=== PATIENT | female | born 1940 | race African-American/Black ===

== ENCOUNTER 2022-10-03 13:59 | Inpatient (IN) | payer MEDICARE, OTHER ==
[~2022-10-03] VITALS: Ht 162.6 cm; Wt 64.0 kg
[~2022-10-03 13:59] MED LIST: APIX2.5T PO; CARV6.252 PO; DONE10TA44 PO; FERR325T23 PO; LEVO25TA7 PO; PANT40TA49 PO; SERT25TA PO
--- NOTE | 2022-10-03 14:10 | NUR ---
[facility], SYNCOPAL EPISODE, NO HEAD INJURY, ON ELIQUIS. PLACED IN BED, AAOX4, BREATHING EVEN AND UNLABORED SATURATING AT 97%RA. WILL CONTINUE TO MONITOR.
--- NOTE | 2022-10-03 14:20 | NUR ---
BLOOD DRAWN AND SENT TO LAB
--- NOTE | 2022-10-03 14:23 | NUR ---
MOVE SHEET SUBMITTED.
[2022-10-03 14:37] LABS: EOSINOPHILS % (AUTO) 2.9 % (0.0-6.0); HEMATOCRIT 28 % (33-45); LYMPHOCYTES # (AUTO) 1.7 K/uL (0.8-4.8); LYMPHOCYTES % (AUTO) 49.2 % (20.0-44.0); MEAN CORPUSCULAR HGB CONC 32 g/dl (31.0-36.0); MEAN CORPUSCULAR VOLUME 88 fL (82-100); MONOCYTES # (AUTO) 0.4 K/uL (0.1-1.30); MONOCYTES % (AUTO) 10.2 % (2.0-12.0); NEUTROPHILS # (AUTO) 1.3 K/uL (1.8-8.9); NEUTROPHILS % (AUTO) 36.7 % (43.0-81.0); PLATELET COUNT (AUTO) 286 K/uL (150-450); RED BLOOD CELL COUNT(AUTO) 3.19 MIL/uL (4.0-5.2); WHITE BLOOD COUNT (AUTO) 3.5 K/uL (4.3-11.0)
--- NOTE | 2022-10-03 14:53 | NUR ---
SWAB FOR COVID19 SENT TO LAB
[2022-10-03] MEDS ORDERED: PANT40TA49 PO (15:26)
[2022-10-03] MEDS ORDERED: APIX2.5T PO (15:26)
--- NOTE | 2022-10-03 15:40 | NUR ---
URINE SAMPLE COLLECTED AND SENT TO LAB
[2022-10-03 15:45] LABS: CALCIUM, SERUM 9.3 mg/dL (8.5-10.1); CARBON DIOXIDE 30 mmol/L (21-32); CHLORIDE 102 mmol/L (98-107); CREATININE 0.8 mg/dL (0.6-1.3); GLUCOSE 118 mg/dL (74-106); POTASSIUM 4.1 mmol/L (3.5-5.1); SODIUM SERUM 137 mmol/L (136-145); UREA NITROGEN, BLOOD 16 mg/dL (7-18)
[2022-10-03] MEDS ORDERED: IOHEXOL-350 100 ML VIAL IV ONE (15:51)
[2022-10-03] MEDS ORDERED: IV NS 0.9% 250 ML IV ONE (15:51)
[2022-10-03] MEDS ORDERED: CT SWABBABLE VALVE TRANS SET 1 EA INFUS.SET MC ONE (15:51)
--- NOTE | 2022-10-03 16:02 | NUR ---
PATIENT TAKEN TO CT VIA CEDRIC
[2022-10-03 16:13] LABS: BILIRUBIN,URINE NEGATIVE (NEGATIVE); COLOR,URINE YELLOW (YELLOW); LEUKOCYTE ESTERASE ,URINE TRACE (NEGATIVE); NITRITE, URINE NEGATIVE (NEGATIVE); PH,URINE 6.5 (5.0-8.0); PROTEIN,URINE NEGATIVE (NEGATIVE); UGLUCOSE NEGATIVE (NEGATIVE); UROBILINOGEN,URINE 0.2 EU/dL (0.2)
[2022-10-03 16:33] LABS: BACTERIA,URINE Many /HPF (None Seen); SQUAMOUS EPITHELIAL CELL,UR Moderate /HPF (None Seen)
[2022-10-03 16:34] LABS: URINE AMORPHOUS URATE Many /HPF (None Seen)
[2022-10-03] MEDS ORDERED: ACETAMINOPHEN 325 MG TABLET PO PRN (17:30)
[2022-10-03] MEDS ORDERED: Z GUARD REMEDY 4 OZ OINT TP PRN (17:30)
[2022-10-03] MEDS ORDERED: MAGNESIUM HYDROXIDE 30 ML UDC PO PRN (17:30)
[2022-10-03] MEDS ORDERED: ONDANSETRON HCL/PF 4 MG/2 ML VIAL IVP PRN (17:30)
[2022-10-03] MEDS ORDERED: MAG HYDROX/AL HYDROX/SIMETH 30 ML UDC PO PRN (17:30)
[2022-10-03] MEDS ORDERED: ACETAMINOPHEN 325 MG TABLET ONE (17:59)
--- NOTE | 2022-10-03 20:28 | NUR ---
REPORT GIVEN TO GEENA RN ROOM 119-1 FOR LUIS ALFREDO
--- NOTE | 2022-10-03 21:00 | NUR ---
BRAZING MACHINE SETTER NOTE RECEIVED PT FROM ER VIA CEDRIC, PT WAS AWAKE, A/O X 4, ABLE TO MAKE NEEDS KNOWN. GRAND DAUGHTER NORMA ON BED SIDE. CURRENTLY ON RA, TOLERATING WELL. O2 SAT @ >95%. NO S/SX OF ACUTE RESPI DISTRESS NOTED AT THIS TIME. NO SOB, BREATHING IS EVEN AND UNLABORED. IV ACCESS IS IN LAC #20g, PATENT, INTACT AND FLUSHES WELL. UPON ASSESSMENT, PT HAS EDEMA ON THE RIGHT LOWER LEG, SACRAL DTI NOTED TOO. PHOTOS TAKEN AND PLACED IN CHART. WOUND CARE CONSULT ORDERED. ALL SAFETY PRECAUTIONS IN PLACE: BED LOCKED IN LOW POSITION, BED ALARM ON. CALL LIGHT WITHIN REACH. WILL CONTINUE TO MONITOR PT.
[2022-10-03] MEDS: IV NS 0.9% 1,000 ML IV PRN (21:28)
[2022-10-04] VITALS: BP 151/78
[2022-10-04 04:00] VITALS: BP 149/74
--- NOTE | 2022-10-04 06:17 | NUR ---
RN NOTE NO SIGNIFICANT CHANGE T/O THE NIGHT. PT REMAINED STABLE. VS WNL. ALL NEEDS MET. TURNED AND REPOSITIONED. WILL ENDORSE TO AM SHIFT NURSE FOR LUIS ALFREDO.
[2022-10-04 07:31] LABS: CARBON DIOXIDE 26 mmol/L (21-32); CHLORIDE 100 mmol/L (98-107); CREATININE 0.8 mg/dL (0.6-1.3); GLUCOSE 101 mg/dL (74-106); MAGNESIUM 2.2 mg/dL (1.8-2.4); PHOSPHORUS 2.8 mg/dL (2.5-4.9); POTASSIUM 3.6 mmol/L (3.5-5.1); SODIUM SERUM 133 mmol/L (136-145); UREA NITROGEN, BLOOD 12 mg/dL (7-18)
--- NOTE | 2022-10-04 07:53 | NUR ---
RN OPENING NOTE PT AWAKE, A/O X 4, ABLE TO MAKE NEEDS KNOWN. CURRENTLY ON RA, TOLERATING WELL. O2 SAT @ >92%. NO S/SX OF ACUTE RESPI DISTRESS NOTED AT THIS TIME. NO SOB, BREATHING IS EVEN AND UNLABORED. IV ACCESS IS IN LAC #20g, PATENT, INTACT AND FLUSHES WELL. PT HAS EDEMA ON THE RIGHT LOWER LEG, SACRAL DTI NOTED TOO. ALL SAFETY PRECAUTIONS IN PLACE: BED LOCKED IN LOW POSITION, SIDE RAILS UP X2. BED ALARM ON. CALL LIGHT WITHIN REACH.
[2022-10-04 08:00] VITALS: BP 148/70
[2022-10-04] MEDS: PANTOPRAZOLE 40 MG TABLET.DR PO SCH (08:11)
[2022-10-04] MEDS: APIXABAN 2.5 MG TABLET PO SCH ×2 (08:13→16:14)
--- NOTE | 2022-10-04 08:30 | NUR ---
rn note notified dr. suárez of orthostatic hypotension sitting bp 161/62 standing bp 148/70 lying 169/64 pt reports not feeling dizzy
[2022-10-04 08:51] LABS: BASOPHILS # (AUTO) 0.1 K/uL (0.0-0.2); BASOPHILS % (AUTO) 1.6 % (0.0-2.0); EOSINOPHILS % (AUTO) 1.4 % (0.0-6.0); HEMATOCRIT 29 % (33-45); LYMPHOCYTES # (AUTO) 1.4 K/uL (0.8-4.8); LYMPHOCYTES % (AUTO) 37.3 % (20.0-44.0); MEAN CORPUSCULAR HGB CONC 31 g/dl (31.0-36.0); MEAN CORPUSCULAR VOLUME 91 fL (82-100); MONOCYTES # (AUTO) 0.5 K/uL (0.1-1.30); MONOCYTES % (AUTO) 14.6 % (2.0-12.0); NEUTROPHILS # (AUTO) 1.6 K/uL (1.8-8.9); NEUTROPHILS % (AUTO) 45.1 % (43.0-81.0); PLATELET COUNT (AUTO) 260 K/uL (150-450); RED BLOOD CELL COUNT(AUTO) 3.19 MIL/uL (4.0-5.2); WHITE BLOOD COUNT (AUTO) 3.6 K/uL (4.3-11.0)
--- NOTE | 2022-10-04 10:22 | NUR ---
WOUND CARE CONSULT: PT PRESENTS WITH SACRAL STAGE 2 ULCER, PRESENT ON ADMISSION. RECOMMENDATIONS MADE FOR SKIN PROTECTION AND WOUND CARE. DISCUSSED WITH NURSING STAFF. IN AGREEMENT WITH PLAN OF CARE. Addendum: 10/04/22 at 1023 by CLAIRE CUNNINGHAM WNDNU Amended: Links added.
[2022-10-04] MEDS ORDERED: HYDROGEL DRESSING 90 GM TUBE TP PRN (10:30)
[2022-10-04 12:00] VITALS: BP 177/66
[2022-10-04] MEDS: CLONIDINE HCL 0.1 MG TABLET PO PRN (12:15)
[2022-10-04] MEDS: HYDROGEL DRESSING 90 GM TUBE TP SCH (13:55)
[2022-10-04] MEDS: MINERAL OIL/PETROLATUM,WHITE 120 GM JAR TP SCH (13:55)
[2022-10-04] MEDS: LEVETIRACETAM (250 MG) 250 MG TABLET PO SCH ×2 (15:14→20:50)
[2022-10-04 16:00] VITALS: BP 125/46
--- NOTE | 2022-10-04 19:23 | NUR ---
RN CLOSING NOTE PT AWAKE, A/O X 4, ABLE TO MAKE NEEDS KNOWN. CURRENTLY ON RA, TOLERATING WELL. O2 SAT @ 100%. NO S/SX OF ACUTE RESPI DISTRESS NOTED AT THIS TIME. NO SOB, BREATHING IS EVEN AND UNLABORED. IV ACCESS IS IN LAC #20g, PATENT, INTACT AND FLUSHES WELL. PT HAS EDEMA ON THE RIGHT LOWER LEG, SACRAL DTI NOTED TOO. ALL SAFETY PRECAUTIONS IN PLACE: BED LOCKED IN LOW POSITION, SIDE RAILS UP X2. BED ALARM ON. CALL LIGHT WITHIN REACH.PT ON SEIZURE PRECAUTIONS. ENDORSED TO BAG MACHINE TENDER RN FOR CONTUITTY OF CARE
--- NOTE | 2022-10-04 19:24 | NUR ---
BOILERMAKER APPRENTICE CLOSING NOTE PATIENT A/O X4. BREATHING EVEN AND NON-LABORED ON ROOM AIR. NOT IN APPARENT DISTRESS. NO C/O PAIN OR DISCOMFORT AT THIS TIME. RIGHT UPPER ARM HD CATH. ALL SAFETY PRECAUTIONS IN PLACE: BED LOCKED AND IN LOW POSITION, SIDE RAILS UP X2, CALL LIGHT WITHIN REACH. BED ALARM ON. PT IS AMBULATORY.PENDING DISCHARGE. PICKUP TIME SCHEDULED FOR 1899 BY AMBULANCE. REMOVED IV AND TELE MONITOR. PT DISCHARGED WITH ALL BELONGINGS. WENT OVER DISCHARGE PAPERWORK. PT VERBALIZED UNDERSTANDING AND AGREED. ENDORESED TO PRINTING PLATE SETTER RN FOR CONTUITY OF CARE AND PENDING DISCHARGE Addendum: 10/04/22 at 1946 by ESEQUIEL FISHER RN CHARTED ON WRONG PATIENT
--- NOTE | 2022-10-04 19:30 | NUR ---
TELE1 RN NOTES RECEIVED LYING ON BED,A/O X4,ABLE TO COMMUNICATE NEEDS,SR 81 ON TELE MONITOR,BREATHING REGULAR,NOT IN ANY FORM OF DISTRESS.PRESENT IVF NS AT 75ML/HR RATE INFUSING ON LEFT AC SALINE LOCK VIA IV PUMP.DENIES CHEST PAIN,ABLE AMBULATE TO THE RESTROOM WITH ASSIST.FALL PRECAUTION OBSERVED,SEIZURE PRECAUTION OBSERVED,SIDE RAILS PADDED FOR SAFETY.BED ON LOWEST POSITION AND LOCKED.BED ALARM TRIGGERED.CALL LIGHT IN REACH,NEEDS ANTICIPATED.
[2022-10-04 20:00] VITALS: BP 139/76
[2022-10-05] VITALS: BP 144/69
[2022-10-05 04:00] VITALS: BP 113/58
--- NOTE | 2022-10-05 06:54 | NUR ---
TELE1 RN CLOSING NOTES SLEEP WELL AT NIGHT,NO CHEST PAIN.AMBULATE WITH WALKER TO THE BATHROOM.REFUSED PHOTOGRAPH ON HER BUTTOCKS THIS MORNING.IN NO ACUTE DISTRESS.
[2022-10-05 07:25] LABS: BASOPHILS % (AUTO) 0.9 % (0.0-2.0); EOSINOPHILS % (AUTO) 1.3 % (0.0-6.0); HEMATOCRIT 26 % (33-45); HEMOGLOBIN 8.6 g/dL (11.5-14.8); LYMPHOCYTES # (AUTO) 1.8 K/uL (0.8-4.8); LYMPHOCYTES % (AUTO) 51.4 % (20.0-44.0); MEAN CORPUSCULAR HGB CONC 33 g/dl (31.0-36.0); MEAN CORPUSCULAR VOLUME 88 fL (82-100); MONOCYTES # (AUTO) 0.7 K/uL (0.1-1.30); MONOCYTES % (AUTO) 20.2 % (2.0-12.0); NEUTROPHILS # (AUTO) 0.9 K/uL (1.8-8.9); NEUTROPHILS % (AUTO) 26.2 % (43.0-81.0); PLATELET COUNT (AUTO) 248 K/uL (150-450); RED BLOOD CELL COUNT(AUTO) 2.99 MIL/uL (4.0-5.2); WHITE BLOOD COUNT (AUTO) 3.4 K/uL (4.3-11.0)
--- NOTE | 2022-10-05 07:29 | NUR ---
RECEIVED NEW ORDER FROM DR. ESCOBEDO, PATIENT TO NPO DUE TO PACEMAKER INSERTION, NOTED AND CARRIED OUT. PLAN OF CARE CONTINUE.
--- NOTE | 2022-10-05 07:30 | NUR ---
RECEIVED A CALL FROM RIKKI, INFORMING THAT PATIENT WILL HAVE PACEMAKER INSERTION, INFORMED THAT PATIENT GOT ELIQUIS AT 1614H, DR. BRANDT SAID IT'S OK AND JUST HOLD THE AM MEDICATION. PLAN OF CARE CONTINUE.
--- NOTE | 2022-10-05 07:30 | NUR ---
TELE OPENING RN NOTES RECEIVED LYING ON BED,A/O X4,ABLE TO COMMUNICATE NEEDS,SR 77 ON TELE MONITOR, ON RA, BREATHING EVEN AND UBLABORED, NOT IN ANY FORM OF DISTRESS. ON IVF NS AT 75ML/HR RATE INFUSING ON LEFT AC, PATENT AND INTACT, FLUSHES WELL. .DENIES CHEST PAIN,ABLE AMBULATE TO THE RESTROOM WITH ASSIST. FALL PRECAUTION OBSERVED,SEIZURE PRECAUTION OBSERVED,SIDE RAILS PADDED FOR SAFETY.BED ON LOWEST POSITION AND LOCKED.BED ALARM TRIGGERED.CALL LIGHT WITHIN REACH. PLAN OF CARE CONTINUE.
[2022-10-05 07:37] LABS: CALCIUM, SERUM 8.9 mg/dL (8.5-10.1); CARBON DIOXIDE 28 mmol/L (21-32); CHLORIDE 101 mmol/L (98-107); CREATININE 0.7 mg/dL (0.6-1.3); GLUCOSE 92 mg/dL (74-106); POTASSIUM 3.7 mmol/L (3.5-5.1); SODIUM SERUM 136 mmol/L (136-145); UREA NITROGEN, BLOOD 12 mg/dL (7-18)
[2022-10-05 08:00] VITALS: BP 142/63
[2022-10-05] MEDS: LEVETIRACETAM (250 MG) 250 MG TABLET PO SCH ×2 (08:08→21:03)
[2022-10-05] MEDS: MINERAL OIL/PETROLATUM,WHITE 120 GM JAR TP SCH (08:08)
[2022-10-05] MEDS: HYDROGEL DRESSING 90 GM TUBE TP SCH (08:08)
[2022-10-05] MEDS: PANTOPRAZOLE 40 MG TABLET.DR PO SCH (08:08)
[2022-10-05] MEDS ORDERED: BUPIVACAINE 0.25% 75 MG/30 ML VIAL ONE (08:56)
[2022-10-05] MEDS ORDERED: IOHEXOL 0 ML IV ONE (08:56)
[2022-10-05] MEDS ORDERED: BUPIVACAINE 0.5 % PF 150 MG/30 ML VIAL ONE (08:57)
[2022-10-05] MEDS ORDERED: LIDOCAINE 1% INJ 50 ML MDV IJ ONE (08:57)
[2022-10-05] MEDS ORDERED: PROSOURCE / PROSTAT (PYXIS) 30 ML UDC GT SCH (09:00)
--- NOTE | 2022-10-05 10:25 | NUR ---
GRANDDAUGHTER CALLED AND STATED HE WANT'S TO TALK TO DR. ESCOBEDO FIRST BEFORE THEY CAN DO THE PROCEDURE, PER GRAND DAUGHTER SHE IS THE POA AND PATIENT IS NOT INFORMED DR. ESCOBEDO AND Addendum: 10/05/22 at 1035 by DIA BISWAS RN ONLY ORIENTED TO SELF, INFORMED DR. ESCOBEDO AND DR. THORNTON,PER DR. THORNTON SURGERY IS CANCEL. PLAN OF CARE CONTINUE.
--- NOTE | 2022-10-05 10:30 | NUR ---
INFORMED THAT GRANDDAUGHTER IS NOT REFUSING ABOUT THE PROCEDURE, BUT SHE WANTED TO TALK TO THE MD ABOUT WHAT'S GOING ON, INFORMED DR. ESCOBEDO, DR. ESCOBEDO DOESN'T WANT TO SPEAK WITH THE GRANDDAUGHTER, INFORMED THE GRANDDAUGHTER AND CHARGE NURSE JERALD. WILL INFORMED DR. ANNA
[2022-10-05 11:32] LABS: BAND % (MANUAL) 2 % (0.0-5.0); EOSINOPHILS % (MANUAL) 1 % (0-4); LYMPHOCYTES % (MANUAL) 58 % (16-48); MONOCYTES % (MANUAL) 9 % (0-11.0); NEUTROPHILS % (MANUAL) 29 (42-76)
[2022-10-05 11:34] LABS: MYELOCYTES % 1 % (0-0)
[2022-10-05 12:00] VITALS: BP 118/51
--- NOTE | 2022-10-05 13:19 | NUR ---
PATIENT'S GRANDDAUGHTER SPOKE TO COMPLIANCE FIELD TECHNICIAN RACHEL AND INFORMED THAT THE GRANDDAUGHTER WANT'S TO BE INVOLVED IN THE DECISION MAKING OF THE PATIENT.
--- NOTE | 2022-10-05 13:26 | NUR ---
DR. ESCOBEDO SPOKE TO THE PATIENT'S GRANDDAUGHTER AT THE BEDSIDE
--- NOTE | 2022-10-05 14:41 | NUR ---
INFORMED DR. STAHL THAT GRANDDAUGHTER ALREADY AGREED WITH THE PACEMAKER INSERTION AFTER TALKING TO DR. ESCOBEDO, PER DR. STAHL THEY WILL DO THE PROCEDURE MARBELLA. NPO AFTER MIDNIGHT ORDER PLACED. PLAN OF CARE CONTINUE.
[2022-10-05] MEDS: PROSOURCE / PROSTAT (PYXIS) 30 ML UDC PO SCH (16:08)
--- NOTE | 2022-10-05 16:27 | NUR ---
DR. MILLS AT THE BEDSIDE, INFORMED MD THAT THE GRAND DAUGHTER WANT'S TO SPEAK WITH HIM, PHONE NUMBER GIVEN TO DR. MILLS.
[2022-10-05 16:28] VITALS: BP 133/60
--- NOTE | 2022-10-05 17:30 | NUR ---
SS consult requested. SW will follow up at a later time.
[2022-10-05] MEDS: IV NS 0.9% 1,000 ML IV PRN (18:06)
--- NOTE | 2022-10-05 18:13 | NUR ---
TELE CLOSING RN NOTES PATIENT IN BED AWAKE, WATCHING TV, A/O X3, ABLE TO COMMUNICATE NEEDS,SR HR 88 ON TELE MONITOR, ON RA, BREATHING EVEN AND UNLABORED, NOT IN ANY FORM OF DISTRESS. ON IVF NS AT 75ML/HR RATE INFUSING ON LEFT AC, PATENT AND INTACT, FLUSHES WELL. .DENIES CHEST PAIN,ABLE AMBULATE TO THE RESTROOM WITH ASSIST. FALL PRECAUTION OBSERVED,SEIZURE PRECAUTION OBSERVED,NO SEIZURE EPISODE. SIDE RAILS PADDED FOR SAFETY. BED ON LOWEST POSITION AND LOCKED. SAFETY PRECAUTION MAINTAINED. CALL LIGHT WITHIN REACH.PATIENT WILL BE NPO AFTER MIDNIGHT,WILL ENDORSE TO NIGHT NURSE FOR LUIS ALFREDO.
--- NOTE | 2022-10-05 19:30 | NUR ---
RN NOTES RECEIVED REPORT FROM MORNING RN. PATIENT IN BED A/O X3 ABLE TO MAKE NEEDS KNOWN. ON ROOM AIR SATING 98% NO SOB NO DISTRESS NOTED AT THIS TIME. WITH IV ACCESS AT L AC PATENT FLUSHES WELL RUNNING NS@75CC/HR NO REDNESS NO INFILTRATION NOTED AT THIS TIME. ALL SAFETY MEASURES IN BED BED ALARM ON. FOR PACEMAKER INSERTION IN THE MORNING. NPO AT MIDNIGHT INSTRUCTED TO PATIENT. WILL CLOSELY MONITOR THE PATIENT
[2022-10-05 20:00] VITALS: BP 105/45
[2022-10-06] VITALS: BP 117/41
[2022-10-06 04:00] VITALS: BP 134/56
--- NOTE | 2022-10-06 07:23 | NUR ---
TELE OPENING RN NOTES RECEIVED LYING ON BED,A/O X4,ABLE TO COMMUNICATE NEEDS,SR 77 ON TELE MONITOR, ON RA, BREATHING EVEN AND UNLABORED, NOT IN ANY FORM OF DISTRESS. ON IVF NS AT 75ML/HR RATE INFUSING ON LEFT AC, PATENT AND INTACT, FLUSHES WELL. .DENIES CHEST PAIN,ABLE AMBULATE TO THE RESTROOM WITH ASSIST. FALL PRECAUTION OBSERVED,SEIZURE PRECAUTION OBSERVED,SIDE RAILS PADDED FOR SAFETY.BED ON LOWEST POSITION AND LOCKED.BED ALARM TRIGGERED.CALL LIGHT WITHIN REACH.
--- NOTE | 2022-10-06 07:26 | NUR ---
RN NOTES PATIENT REMAINS STABLE NO SIGNIFICANT CHANGES. NPO ALEXANDRE INSTRUCTED. PATIENT FOR PACEMAKER INSERTION TODAY. WILL ENDORSED TO MORNING NURSE FOR LUIS ALFREDO
[2022-10-06 08:00] VITALS: BP 143/67
[2022-10-06] MEDS: PROSOURCE / PROSTAT (PYXIS) 30 ML UDC PO SCH ×3 (08:01→16:31)
[2022-10-06] MEDS: MINERAL OIL/PETROLATUM,WHITE 120 GM JAR TP SCH (08:01)
[2022-10-06] MEDS: PANTOPRAZOLE 40 MG TABLET.DR PO SCH (08:01)
[2022-10-06] MEDS: HYDROGEL DRESSING 90 GM TUBE TP SCH (08:01)
[2022-10-06] MEDS ORDERED: LIDOCAINE HCL/PF 1% 30 ML SDV ONE (08:29)
[2022-10-06] MEDS ORDERED: IOHEXOL 0 ML IV ONE (08:29)
--- NOTE | 2022-10-06 08:45 | NUR ---
RN NOTE PATIENT TAKEN TO SURGERY, LEFT IN STABLE CONDITION.
--- NOTE | 2022-10-06 11:00 | NUR ---
RN NOTE PATIENT RETURNED FROM SURGERY A/0X3, STABLE VITAL SIGNS. CALLED GRANDDAUGHTER GAVE UPDATE
[2022-10-06] MEDS: CLONIDINE HCL 0.1 MG TABLET PO PRN (11:53)
[2022-10-06 12:00] VITALS: BP 173/62
--- NOTE | 2022-10-06 12:00 | NUR ---
RN NOTE CLONODINE ADMINISTERED- BP 172 /62
[2022-10-06 16:01] VITALS: BP 148/70
--- NOTE | 2022-10-06 16:02 | NUR ---
RN NOTE 100.8 TEMP NOTED INITIATED COOLING MEASURES
[2022-10-06] MEDS: IV NS 0.9% 1,000 ML IV PRN (17:10)
--- NOTE | 2022-10-06 18:32 | NUR ---
RN CLOSING NOTES PATIENT IN BED AWAKE, WATCHING TV, A/O X3, ABLE TO COMMUNICATE NEEDS, ON TELE MONITOR, ON RA, BREATHING EVEN AND UNLABORED, NOT IN ANY FORM OF DISTRESS. ON IVF NS RIGHT AC, PATENT AND INTACT, FLUSHES WELL. .DENIES CHEST PAIN,ABLE AMBULATE TO THE RESTROOM WITH ASSIST. PATIENT IS S/P DOUBLE CHAMBER PACEMAKER ON THE LEFT CHAMBER. FALL PRECAUTION OBSERVED,SEIZURE PRECAUTION OBSERVED,NO SEIZURE EPISODE. SIDE RAILS PADDED FOR SAFETY. BED ON LOWEST POSITION AND LOCKED. SAFETY PRECAUTION MAINTAINED. CALL LIGHT WITHIN REACH. WILL ENDORSE TO NIGHT NURSE FOR LUIS ALFREDO.
[2022-10-06 20:00] VITALS: BP 128/82
[2022-10-07] VITALS: BP 118/78
--- NOTE | 2022-10-07 06:35 | NUR ---
END OF SHIFT REPORT Patient in bed, A/O x3 Forgetful, re oriented frequently. Oxygen sat high 90's in RA. Sinus Tach in the Tele monitor HR 115. Right arm IV peripheral line intact, IVF infusing. Left chest incision, dressing C/D/I no bleed. Patient denies pain. Turned and repositioned q 2h. Patient incontinent, voided urine, denies bladder discomfort. Urinalysis test on 10/03/22 not on abx. Urine cx resulted Ecoli. Will endorse to oncoming RN.
--- NOTE | 2022-10-07 07:55 | NUR ---
FACTORER OPENING NOTE RECEIVED LYING ON BED,A/O X4,ABLE TO COMMUNICATE NEEDS,ON TELE MONITOR, ON RA, BREATHING EVEN AND UNLABORED, NO SIGNS OF PAIN OR DISCOMFORT NOTED AT THIS TIME. ON IVF NS AT 75ML/HR RATE INFUSING ON LEFT AC, PATENT AND INTACT, FLUSHES WELL.ABLE TO AMBULATE TO THE RESTROOM WITH ASSIST. ALL SAFETY MEASURES IN PLACE. FALL PRECAUTION OBSERVED,SIDE RAILS UP X2. .BED ON LOCKED AND IN LOWEST POSITION. BED ALARM ON.CALL LIGHT WITHIN REACH.
[2022-10-07 08:00] VITALS: BP 161/71
[2022-10-07] MEDS: PANTOPRAZOLE 40 MG TABLET.DR PO SCH (08:00)
[2022-10-07] MEDS: PROSOURCE / PROSTAT (PYXIS) 30 ML UDC PO SCH (08:01)
[2022-10-07] MEDS: HYDROGEL DRESSING 90 GM TUBE TP SCH (08:01)
[2022-10-07] MEDS: MINERAL OIL/PETROLATUM,WHITE 120 GM JAR TP SCH (08:01)
[2022-10-07 09:02] VITALS: BP 161/71
[2022-10-07] MEDS: CLONIDINE HCL 0.1 MG TABLET PO PRN (09:10)
--- NOTE | 2022-10-07 09:10 | NUR ---
RN NOTE CLONIDINE prn administered /
[2022-10-07] MEDS ORDERED: ACETAMINOPHEN 325 MG TABLET PO ONE (11:30)
--- NOTE | 2022-10-07 11:47 | NUR ---
RN NOTE notified that temperature 99.9 and if okay for discharge. okay to discharge. ordered 650 mg po one time dose
[2022-10-07 12:00] VITALS: BP 120/54
[2022-10-07 13:00] VITALS: BP 120/54
--- NOTE | 2022-10-07 13:53 | NUR ---
internal communications writer note pt discharged. went over discharge instructions with grandruthannughter.pt julia signed discharged paperwork. granddaughter verbalized understanding.pt discharged with belongings. earrings were taken by julia previosuly. pt stable condition. removed iv and tele monitor box. informed to follow up with transmission supervisor in 2 weeks. Addendum: 10/07/22 at 1447 by ESEQUIEL FISHER RN escorted patient by wheelchair and pt picked up by daughter josh called after discharge to clarify medications she was given today. answered all questions saurabh had. saurabh said okay
[2022-10-08] MEDS ORDERED: DONE10TA44 PO (12:44)
[2022-10-08] MEDS ORDERED: SERT25TA5 PO (12:44)
[2022-10-08] MEDS ORDERED: CHOL100043 PO (12:44)
[2022-10-08] MEDS ORDERED: LEVO25TA9 PO (12:44)
[2022-10-08] MEDS ORDERED: FERR325T23 PO (12:44)
[2022-10-08] MEDS ORDERED: CARV6.252 PO (12:44)
== END 2022-10-07 13:39 | disposition home health service (06) | DRG 244 ==
LOC: ER 14:01 → TELE1 19:28 → MEDSG1 10-07 09:24
PROVIDERS: ADMIT Internal Medicine; ATTEND Internal Medicine
PROC: 0JH606Z Insertion of Pacemaker, Dual Chamber into Chest Subcutaneous Tissue and Fascia, Open Approach (ICD-10-PCS; principal; 2022-10-06)
PROC: 02H63JZ Insertion of Pacemaker Lead into Right Atrium, Percutaneous Approach (ICD-10-PCS; 2022-10-06)
PROC: 02HK3JZ Insertion of Pacemaker Lead into Right Ventricle, Percutaneous Approach (ICD-10-PCS; 2022-10-06)
DX: R00.1 Bradycardia, unspecified (principal); D64.9 Anemia, unspecified; I10 Essential (primary) hypertension; Z20.822 Contact with and (suspected) exposure to COVID-19; E78.5 Hyperlipidemia, unspecified; Z86.718 Personal history of other venous thrombosis and embolism; Z79.01 Long term (current) use of anticoagulants; I87.2 Venous insufficiency (chronic) (peripheral); I89.0 Lymphedema, not elsewhere classified; Z79.899 Other long term (current) drug therapy; W01.198A Fall on same level from slipping, tripping and stumbling with subsequent striking against other object, initial encounter; Y92.89 Other specified places as the place of occurrence of the external cause; Z86.73 Personal history of transient ischemic attack (TIA), and cerebral infarction without residual deficits; F03.90 Unspecified dementia, unspecified severity, without behavioral disturbance, psychotic disturbance, mood disturbance, and anxiety
CPT/HCPCS: 36415; 70450-TC; 71045-TC; 80048-TC; 81001; 82962-TC; 83735-TC; 84100-TC; 84443-TC; 84484-TC; 85025-TC; 85378-TC; 87081-TC; 87086-TC; 93307-TC; 93880-TC; 93970-TC; 95819-TC; 97112-TC; 97116-TC; 97530-TC; A6248; C9803; G0378; J0690; J1644; J2704; J3490; J7030; J7050; Q9967

== ENCOUNTER 2022-10-08 11:05 | Inpatient (IN) | payer MEDICARE ==
[~2022-10-08] VITALS: Ht 162.6 cm; Wt 50.8 kg
--- NOTE | 2022-10-08 11:10 | NUR ---
[facility] HOME, FOUND BY FAMILY IN THE FLOOR. PT STATES "SHE SLIPPED" BG 184 VIDEO PLAYER MECHANIC. PLACED IN BED, AAOX4, BREATHING EVEN AND UNLABORED SATURATING AT 96%RA, BP- 128/62
--- NOTE | 2022-10-08 11:30 | NUR ---
COVID TEST COLLECTED AND SENT
--- NOTE | 2022-10-08 11:55 | NUR ---
X-RAY TECH AT BEDSIDE
--- NOTE | 2022-10-08 12:00 | NUR ---
MANAGER SOLAR AT BEDSIDE
[2022-10-08 12:41] LABS: BASOPHILS % (AUTO) 0.4 % (0.0-2.0); EOSINOPHILS % (AUTO) 0.5 % (0.0-6.0); HEMATOCRIT 29 % (33-45); HEMOGLOBIN 8.9 g/dL (11.5-14.8); LYMPHOCYTES # (AUTO) 1.2 K/uL (0.8-4.8); LYMPHOCYTES % (AUTO) 11.2 % (20.0-44.0); MEAN CORPUSCULAR HGB CONC 31 g/dl (31.0-36.0); MEAN CORPUSCULAR VOLUME 91 fL (82-100); MONOCYTES # (AUTO) 2.4 K/uL (0.1-1.30); MONOCYTES % (AUTO) 22.5 % (2.0-12.0); NEUTROPHILS # (AUTO) 6.8 K/uL (1.8-8.9); NEUTROPHILS % (AUTO) 65.4 % (43.0-81.0); PLATELET COUNT (AUTO) 198 K/uL (150-450); RED BLOOD CELL COUNT(AUTO) 3.13 MIL/uL (4.0-5.2); WHITE BLOOD COUNT (AUTO) 10.4 K/uL (4.3-11.0)
[2022-10-08] MEDS ORDERED: CARV6.252 PO (12:44)
[2022-10-08] MEDS ORDERED: SERT25TA5 PO (12:44)
[2022-10-08] MEDS ORDERED: LEVO25TA9 PO (12:44)
[2022-10-08] MEDS ORDERED: DONE10TA44 PO (12:44)
[2022-10-08] MEDS ORDERED: CHOL100043 PO (12:44)
[2022-10-08] MEDS ORDERED: FERR325T23 PO (12:44)
[2022-10-08 12:55] LABS: BAND % (MANUAL) 2 % (0.0-5.0); CALCIUM, SERUM 9.6 mg/dL (8.5-10.1); CARBON DIOXIDE 26 mmol/L (21-32); CHLORIDE 99 mmol/L (98-107); CREATININE 0.9 mg/dL (0.6-1.3); EOSINOPHILS % (MANUAL) 2 % (0-4); GLUCOSE 130 mg/dL (74-106); LYMPHOCYTES % (MANUAL) 14 % (16-48); MONOCYTES % (MANUAL) 20 % (0-11.0); NEUTROPHILS % (MANUAL) 62 (42-76); POTASSIUM 4.1 mmol/L (3.5-5.1); SODIUM SERUM 130 mmol/L (136-145); UREA NITROGEN, BLOOD 16 mg/dL (7-18)
[2022-10-08 13:05] LABS: ALANINE AMINOTRANSFERASE 30 U/L (12-78); ALBUMIN 3.2 g/dL (3.4-5.0); ALKALINE PHOSPHATASE 80 U/L (46-116); ASPARTATE AMINOTRANSFERASE 44 U/L (15-37); BILIRUBIN,DIRECT 0.2 mg/dL (0.0-0.2); BILIRUBIN,TOTAL 0.5 mg/dL (0.2-1.0); TOTAL PROTEIN, SERUM 8.1 g/dL (6.4-8.2)
--- NOTE | 2022-10-08 13:12 | NUR ---
URINE SAMPLE SENT TO LAB
--- NOTE | 2022-10-08 13:43 | NUR ---
AUTHORIZATION CONFIRMED
[2022-10-08] MEDS ORDERED: ONDANSETRON HCL/PF 4 MG/2 ML VIAL IVP PRN (14:00)
[2022-10-08] MEDS ORDERED: MORPHINE SULFATE INJ 2 MG/ML DISP.SYRIN IV PRN (14:00)
[2022-10-08] MEDS ORDERED: ACETAMINOPHEN 325 MG TABLET PO PRN (14:00)
--- NOTE | 2022-10-08 14:02 | NUR ---
RECEIVED REPORT FROM PAN GUNN FOR PATIENT'S ADMISSION TO THE UNIT
--- NOTE | 2022-10-08 14:03 | NUR ---
FAMILY NORMA LEFT CONTACT # [phone]
--- NOTE | 2022-10-08 14:12 | NUR ---
RECEIVED PATIENT ACCOMPANIED BY TWO NURSES. PATIENT WAS PLACED ON OXYGEN @ 2L/MIN VIA N/C WITH OXYGEN SATURATION OF 100%. NO RESPIRATORY DISTRESS NOTED, BREATHING EVEN AND UNLABORED. PATIENT IS ALERT, ORIENTED X 3. NO C/O PAIN OR DISCOMFORT AT THIS TIME. PATIENT HAS PACEMAKER ON LEFT CHEST WALL. IV ACCESS ON RIGHT ANTECUBITAL AREA, PATENT, FLUSHES WELL, NO S/S INFILTRATION NOTED. PLACED PATIENT ON TELEMETRY AND NOTED TO BE ON SR WITH HR OF 90. CALL LIGHT WITHIN REACH AND ORIENTED TO THE UNIT. ALL SAFETY MEASURES IMPLEMENTED. BED LOCKED AND IN LOWEST POSITION. WILL CONTINUE TO MONITOR PATIENT THROUGHOUT SHIFT.
[2022-10-08 14:37] LABS: BILIRUBIN,URINE 1+ (NEGATIVE); COLOR,URINE YELLOW (YELLOW); LEUKOCYTE ESTERASE ,URINE TRACE (NEGATIVE); NITRITE, URINE NEGATIVE (NEGATIVE); PROTEIN,URINE TRACE mg/dl (NEGATIVE); UGLUCOSE NEGATIVE (NEGATIVE)
--- NOTE | 2022-10-08 16:02 | NUR ---
REPORT GIVEN TO JACI RN ROOM 120 FOR LUIS ALFREDO
[2022-10-08 16:11] LABS: BACTERIA,URINE 1+ /HPF (None Seen); CALCIUM OXALATE CRYSTALS,UR Few /HPF (None Seen); MUCUS,URINE Few /LPF (None Seen); RBC,URINE 21-50 /HPF (0-2)
--- NOTE | 2022-10-08 16:12 | NUR ---
CORRECTION ON THE NOTE ABOVE, PATIENT WAS RECEIVED AT 1612 RECEIVED PATIENT ACCOMPANIED BY TWO NURSES. PATIENT WAS PLACED ON OXYGEN @ 2L/MIN VIA N/C WITH OXYGEN SATURATION OF 100%. NO RESPIRATORY DISTRESS NOTED, BREATHING EVEN AND UNLABORED. PATIENT IS ALERT, ORIENTED X 3. NO C/O PAIN OR DISCOMFORT AT THIS TIME. PATIENT HAS PACEMAKER ON LEFT CHEST WALL. IV ACCESS ON RIGHT ANTECUBITAL AREA, PATENT, FLUSHES WELL, NO S/S INFILTRATION NOTED. PLACED PATIENT ON TELEMETRY AND NOTED TO BE ON SR WITH HR OF 90. CALL LIGHT WITHIN REACH AND ORIENTED TO THE UNIT. ALL SAFETY MEASURES IMPLEMENTED. BED LOCKED AND IN LOWEST POSITION. WILL CONTINUE TO MONITOR PATIENT THROUGHOUT SHIFT.
[2022-10-08] MEDS: IV NS 0.9% 1,000 ML IV SCH (16:54)
[2022-10-08] MEDS ORDERED: APIXABAN 2.5 MG TABLET PO SCH (17:00)
[2022-10-08] MEDS: CARVEDILOL 6.25 MG TABLET PO SCH (17:34)
[2022-10-08] MEDS: APIXABAN 2.5 MG TABLET PO SCH (17:36)
--- NOTE | 2022-10-08 19:00 | NUR ---
GRAIN HANDLER CLOSING NOTES. PATIENT IN BED AWAKE, ALERT, ORIENTED X 3. PATIENT WAS VISITED BY DR ELIZONDO EARLIER. PATIENT REMAINS STABLE AND NO C/O PAIN OR DISCOMFORT. ON ST PER TELE MONITOR WITH HR OF 100. IV SITE INTACT ON LEFT ANTECUBITAL AREA, INFUSING WITH NS @ 75 ML/HR, SITE PATENT AND NO S/S INFILTRATION NOTED. ALL SAFETY MEASURES IMPLEMENTED. ALL NEEDS MET AND ANTICIPATED. WILL ENDORSE TO INCOMING NURSE FOR CONTINUITY OF CARE.
[2022-10-08 20:00] VITALS: BP 118/58
--- NOTE | 2022-10-08 20:00 | NUR ---
OUTDOOR RECREATION SPECIALIST OPENING NOTE RECEIVED PT IN BED AWAKE, A/O X 3, VERBALLY RESPONSIVE, O2 VIA NC AT 2L, O2 SAT 98%, NO C/O PAIN OR DISCOMFORT. ON TELE MONITOR SR OF 62. NEWLY PLACED L CHEST WALL PACEMAKER, COVERED WITH DRY DRESSING, NO ACTIVE BLEEDING NOTED. PIV ON RAC, INFUSING WITH NS AT 75 ML/HR, SITE PATENT AND NO S/SX INFILTRATION NOTED. ALL SAFETY MEASURES IMPLEMENTED: BED LOCKED IN LOWEST POSITION, SIDE RAILS UP X3, CALL LIGHT WITHIN REACH. WILL CONTINUE TO MONITOR.
[2022-10-08] MEDS: CEFTRIAXONE 1 G in IV D5W 50 ML IV SCH (20:20)
--- NOTE | 2022-10-08 20:30 | NUR ---
BARGE PILOT NOTE SPOKE WITH GRANDDAUGHTER, BRANDIE, GAVE HER AN UPDATE AND ASKED HER THE CODE STATUS. SHE WANTS HER GRANDMOTHER TO BE FULL CODE AT THIS TIME.
[2022-10-09] VITALS (9 sets, daily range): BP systolic 83–157; BP diastolic 37–82
[2022-10-09] MEDS: IV NS 0.9% 1,000 ML IV SCH (04:19)
--- NOTE | 2022-10-09 06:59 | NUR ---
ZINC PLATER CLOSING NOTE PT IN BED, AWAKE, A/O X 3, VERBALLY RESPONSIVE, O2 VIA NC AT 2L, O2 SAT 100%, NO DISTRESS NOTED. ON TELE MONITOR SR WITH OCCASIONAL PAC'S AND PVC'S, HR OF 82. NEWLY PLACED L CHEST WALL PACEMAKER, COVERED WITH DRESSING, DRY AND INTACT. PIV ON RAC, INFUSING WITH NS AT 75 ML/HR, SITE PATENT AND NO S/SX INFILTRATION NOTED. ALL DUE MEDS WERE GIVEN AND NEEDS ATTENDED, VSS, SAFETY MEASURES MAINTAINED: BED LOCKED IN LOWEST POSITION, SIDE RAILS UP X3, CALL LIGHT WITHIN REACH. WILL ENDORSE TO ONCOMING NURSE FOR LUIS ALFREDO.
--- NOTE | 2022-10-09 07:20 | NUR ---
X RAY DEVELOPING MACHINE OPERATOR OPENING NOTES: RECEIVED PATIENT IN BED, AWAKE, ALERT, ORIENTED X 3. NO RESPIRATORY DISTRESS NOTED, BREATHING EVEN AND UNLABORED WITH OXYGEN @ 2L/MIN VIA N/C WITH OXYGEN SATURATION OF 100%. ON SR WITH HR OF 75 PER TELE MONITOR. IV ACCESS ON RIGHT ANTECUBITAL AREA INFUSING WITH NS @ 75 ML/HR, IV SITE PATENT, NO S/S INFILTRATION NOTED. NO C/O PAIN OR DISCOMFORT AT THIS TIME. ALL SAFETY MEASURES IMPLEMENTED. BED LOCKED AND IN LOWEST POSITION. CALL LIGHT WITHIN REACH. WILL CONTINUE TO MONITOR PATIENT THROUGHOUT SHIFT.
[2022-10-09 07:30] LABS: BASOPHILS % (AUTO) 0.6 % (0.0-2.0); EOSINOPHILS % (AUTO) 1.8 % (0.0-6.0); HEMATOCRIT 24 % (33-45); HEMOGLOBIN 7.7 g/dL (11.5-14.8); LYMPHOCYTES # (AUTO) 1.3 K/uL (0.8-4.8); MEAN CORPUSCULAR HGB CONC 32 g/dl (31.0-36.0); MEAN CORPUSCULAR VOLUME 88 fL (82-100); MONOCYTES # (AUTO) 1.5 K/uL (0.1-1.30); MONOCYTES % (AUTO) 30.2 % (2.0-12.0); NEUTROPHILS % (AUTO) 40.4 % (43.0-81.0); PLATELET COUNT (AUTO) 189 K/uL (150-450); RED BLOOD CELL COUNT(AUTO) 2.71 MIL/uL (4.0-5.2); WHITE BLOOD COUNT (AUTO) 4.8 K/uL (4.3-11.0)
[2022-10-09 08:05] LABS: ALANINE AMINOTRANSFERASE 24 U/L (12-78); ALBUMIN 2.9 g/dL (3.4-5.0); ALKALINE PHOSPHATASE 66 U/L (46-116); ASPARTATE AMINOTRANSFERASE 23 U/L (15-37); BILIRUBIN,TOTAL 0.4 mg/dL (0.2-1.0); CALCIUM, SERUM 8.9 mg/dL (8.5-10.1); CARBON DIOXIDE 27 mmol/L (21-32); CHLORIDE 100 mmol/L (98-107); CREATININE 0.8 mg/dL (0.6-1.3); GLUCOSE 126 mg/dL (74-106); PHOSPHORUS 3.2 mg/dL (2.5-4.9); POTASSIUM 3.3 mmol/L (3.5-5.1); SODIUM SERUM 132 mmol/L (136-145); TOTAL PROTEIN, SERUM 7.3 g/dL (6.4-8.2); UREA NITROGEN, BLOOD 10 mg/dL (7-18)
[2022-10-09] MEDS: CHOLECALCIFEROL 1,000 UNIT TABLET (VIT D3) PO SCH (08:12)
[2022-10-09] MEDS: PANTOPRAZOLE 40 MG TABLET.DR PO SCH (08:12)
[2022-10-09] MEDS: LEVOTHYROXINE SODIUM 25 MCG TABLET PO SCH (08:13)
[2022-10-09] MEDS: FERROUS SULFATE (325 MG) 325 MG/TAB TABLET PO SCH (08:13)
[2022-10-09] MEDS: DONEPEZIL 5 MG TABLET PO SCH (08:13)
[2022-10-09] MEDS: CARVEDILOL 6.25 MG TABLET PO SCH ×2 (08:13→17:35)
[2022-10-09] MEDS: SERTRALINE HCL 25 MG TABLET PO SCH (08:14)
[2022-10-09] MEDS: APIXABAN 2.5 MG TABLET PO SCH ×2 (08:49→17:38)
[2022-10-09 08:52] LABS: IRON, SERUM 19 ug/dl (50-175); TOTAL IRON BINDING CAPACITY 161 ug/dl (250-450)
[2022-10-09 09:04] LABS: THYROID STIMULATING HORMONE 6.531 uIU/mL (0.358-3.74)
[2022-10-09 09:35] LABS: BAND % (MANUAL) 3 % (0.0-5.0); EOSINOPHILS % (MANUAL) 3 % (0-4); LYMPHOCYTES % (MANUAL) 36 % (16-48); MONOCYTES % (MANUAL) 15 % (0-11.0); NEUTROPHILS % (MANUAL) 43 (42-76)
--- NOTE | 2022-10-09 11:00 | NUR ---
PATIENT'S GRANDDAUGHTER CAME BY TO VISIT THE PATIENT
--- NOTE | 2022-10-09 11:05 | NUR ---
PATIENT LEFT FOR HEAD CT ORDERED BY . LEFT IN NO ACUTE DISTRESS
--- NOTE | 2022-10-09 11:21 | NUR ---
PATIENT'S BACK IN THE ROOM IN NO ACUTE DISTRESS. PLACED PATIENT BACK ON THE MONITOR AND PLACED HER ON OXYGEN @ 2L/MIN VIA N/C
--- NOTE | 2022-10-09 11:28 | NUR ---
PATIENT ORTHOSTATIC POSITIVE DR. ESCOBEDO NOTIFIED NO NEW ORDERS.
--- NOTE | 2022-10-09 13:12 | NUR ---
WOUND CARE CONSULT: PT PRESENTS WITH LEFT CHEST SURGICAL DRESSING, LYMPHEDEMA TO RT LOWER EXTREMITY AND STAGE 2 ULCER TO SACRUM, PRESENT ON ADMISSION. RECOMMENDATIONS MADE FOR SKIN PROTECTION AND WOUND CARE. DISCUSSED WITH NURSING STAFF. IN AGREEMENT WITH PLAN OF CARE. Addendum: 10/09/22 at 1313 by CLAIRE CUNNINGHAM WNDNU Amended: Links added.
[2022-10-09] MEDS ORDERED: Z GUARD REMEDY 4 OZ OINT TP PRN (13:30)
[2022-10-09] MEDS ORDERED: HYDROGEL DRESSING 90 GM TUBE TP PRN (13:30)
[2022-10-09] MEDS ORDERED: POTASSIUM CHLORIDE 20 MEQ TAB.PRT.SR PO ONE (14:00)
[2022-10-09] MEDS: Z GUARD REMEDY 4 OZ OINT TP SCH (14:53)
[2022-10-09] MEDS: HYDROGEL DRESSING 90 GM TUBE TP SCH (14:53)
[2022-10-09] MEDS ORDERED: IV NS 0.9% 1,000 ML IV PRN (15:39)
--- NOTE | 2022-10-09 17:00 | NUR ---
PATIENT'S DAUGHTER MAYELA STATED THAT SHE NOTICED RIGHT SIDED DROOP ON THE PATIENT'S FACE. ASSESSED THE PATIENT, ABLE TO ANSWER TO HER NAME, NO SIGNIFICANT FACIAL ASYMMETRY,BP 124/62, HR 62 ON TELE MONITOR. ACCORDING TO PATIENT'S CHART, DR. MILLS, ALREADY TALKED TO THE DAUGHTER ABOUT IT. PATIENT WAS ABLE TO SWALLOW WITH NO DIFFICULTY EARLIER AND NO DROOLING NOTED AT THIS TIME. Addendum: 10/09/22 at 1832 by JACINTO CACERES RN ERROR ON THE CHART ABOVE. PLEASE DISREGARD
--- NOTE | 2022-10-09 18:33 | NUR ---
ENERGY SALES BROKER CLOSING NOTES: PATIENT IN BED AWAKE, ALERT, ORIENTED X 3. ON OXYGEN @ 2L/MIN VIA N/C WITH OXYGEN SATURATION OF 100%, NO RESPIRATORY DISTRESS NOTED THROUGHOUT SHIFT. ON SR WITH HR OF 83 PER TELE MONITOR PACEMAKER INTACT ON L CHEST WALL, DRESSING, CLEAN, DRY AND INTACT. HAS IV ACCESS ON RIGHT ANTECUBITAL AREA, INFUSING WITH NS AT 125 ML/HR, SITE PATENT AND NO S/SX INFILTRATION NOTED. ALL DUE MEDS WERE GIVEN AND ALL NEEDS MET AND ATTENDED TO. ALL SAFETY MEASURES IMPLEMENTED, BED LOCKED IN LOWEST POSITION, SIDE RAILS UP X3, CALL LIGHT WITHIN REACH. WILL ENDORSE TO NEXT SHIFT NURSE FOR CONTINUITY OF CARE
[2022-10-09] MEDS: CEFTRIAXONE 1 G in IV D5W 50 ML IV SCH (19:57)
--- NOTE | 2022-10-09 20:00 | NUR ---
OIL OPERATOR OPENING NOTE RECEIVED PT IN BED AWAKE, A/O X3, O2 VIA NC AT 2L, WITH O2 SAT OF 100%, NO SOB/DISTRESS NOTED. ON TELE MONITOR SR WITH HR OF 83. PACEMAKER INTACT ON L CHEST WALL, DRESSING IS CLEAN AND DRY. IV ACCESS ON RAC, INFUSING NS AT 125 ML/HR, SITE PATENT AND NO S/SX INFILTRATION NOTED. SAFETY MEASURES IN PLACE: BED LOCKED IN LOWEST POSITION, SIDE RAILS UP X3, CALL LIGHT WITHIN REACH. WILL CONTINUE TO MONITOR.
--- NOTE | 2022-10-09 23:32 | NUR ---
RN NOTES: CALLED GRAND DAUGHTER REGARDING CONSENT SIGN FOR CT SCAN OF ABD/PELVIS WITH CONTRAST. BUT SHE WANTS TO KNOW MORE DETAILS ABOUT WHY SHE IS HAVING CT SCAN? TRIED TO EXPLAIN TO HER DUE TO HER LEFT LEG LYMPHEDEMA, DR WANTS TO DO THE CT SCAN BUT SHE WANTS TO KNOW MORE DETAILS FROM THE DR. WHO ORDER THE CT SCAN BEFORE SHE SIGN THE CONSENT. CALLED JESSENIA SANTANA AND NOTIFIED. MENTIONED SHE WILL TALKED TO THE GRANDDAUGHTER IN THE MORNING BEFORE THE PROCEDURE.
[2022-10-10] VITALS (8 sets, daily range): BP systolic 143–171; BP diastolic 66–79
--- NOTE | 2022-10-10 04:52 | NUR ---
SPARK PLUG ASSEMBLER NOTE PT PULLED OUT PIV, TRIED TO INSERT MULTIPLE TIMES, BUT PT IS HARD STICK AND DEHYDRATED. NOTIFIED NICHOLAS HART SLUNK SKIN CURER AND NURSING PHARMACY OPERATIONS MANAGER. ORDERED MIDLINE. NOTED AND CARRIED OUT.
--- NOTE | 2022-10-10 07:09 | NUR ---
SWING MANAGER CLOSING NOTE PT IN BED AWAKE, A/O X3, O2 VIA NC AT 2L, WITH O2 SAT OF 100%, NO SOB/DISTRESS NOTED. ON TELE MONITOR SR WITH HR OF 72. PACEMAKER INTACT ON L CHEST WALL, DRESSING IS CLEAN AND DRY. AWAITING MIDLINE INSERTION. ALL DUE MEDS WERE GIVEN AND NEEDS ATTENDED. SAFETY MEASURES IN PLACE: BED LOCKED IN LOWEST POSITION, SIDE RAILS UP X3, CALL LIGHT WITHIN REACH. WILL ENDORSE TO ONCOMING NURSE FOR LUIS ALFREDO.
[2022-10-10 07:40] LABS: BASOPHILS % (AUTO) 0.7 % (0.0-2.0); EOSINOPHILS % (AUTO) 2.6 % (0.0-6.0); HEMATOCRIT 23 % (33-45); HEMOGLOBIN 7.4 g/dL (11.5-14.8); LYMPHOCYTES # (AUTO) 1.5 K/uL (0.8-4.8); LYMPHOCYTES % (AUTO) 41.7 % (20.0-44.0); MEAN CORPUSCULAR HGB CONC 32 g/dl (31.0-36.0); MEAN CORPUSCULAR VOLUME 88 fL (82-100); MONOCYTES # (AUTO) 0.7 K/uL (0.1-1.30); MONOCYTES % (AUTO) 19.3 % (2.0-12.0); NEUTROPHILS # (AUTO) 1.2 K/uL (1.8-8.9); NEUTROPHILS % (AUTO) 35.7 % (43.0-81.0); PLATELET COUNT (AUTO) 215 K/uL (150-450); WHITE BLOOD COUNT (AUTO) 3.5 K/uL (4.3-11.0)
[2022-10-10 07:52] LABS: CALCIUM, SERUM 8.7 mg/dL (8.5-10.1); CREATININE 0.7 mg/dL (0.6-1.3); POTASSIUM 3.5 mmol/L (3.5-5.1)
[2022-10-10 07:58] LABS: ALBUMIN 2.8 g/dL (3.4-5.0); BILIRUBIN,TOTAL 0.4 mg/dL (0.2-1.0); TOTAL PROTEIN, SERUM 7.1 g/dL (6.4-8.2)
[2022-10-10] MEDS: CARVEDILOL 6.25 MG TABLET PO SCH ×2 (08:43→16:30)
[2022-10-10] MEDS: DONEPEZIL 5 MG TABLET PO SCH (08:44)
[2022-10-10] MEDS: SERTRALINE HCL 25 MG TABLET PO SCH (08:44)
[2022-10-10] MEDS: LEVOTHYROXINE SODIUM 25 MCG TABLET PO SCH (08:44)
[2022-10-10] MEDS: CHOLECALCIFEROL 1,000 UNIT TABLET (VIT D3) PO SCH (08:44)
[2022-10-10] MEDS: FERROUS SULFATE (325 MG) 325 MG/TAB TABLET PO SCH (08:44)
[2022-10-10] MEDS: PANTOPRAZOLE 40 MG TABLET.DR PO SCH (08:44)
[2022-10-10] MEDS: MIDODRINE HCL (5MG) 5 MG TABLET PO SCH ×3 (09:00→16:32)
[2022-10-10] MEDS: HYDROGEL DRESSING 90 GM TUBE TP SCH (09:02)
[2022-10-10] MEDS: Z GUARD REMEDY 4 OZ OINT TP SCH (09:02)
[2022-10-10] MEDS: APIXABAN 2.5 MG TABLET PO SCH ×2 (09:54→16:31)
--- NOTE | 2022-10-10 10:03 | NUR ---
RN NOTE PER DR SHONDA CHAVES TO ADMIN ELIQUIS AND ORDER H/H FOR 1800. ORDERS PLACED
[2022-10-10 10:07] LABS: *SPE A/G RATIO 0.8 (0.7-1.7); *SPE ALPHA-1-GLOBULIN 0.4 g/dL (0.0-0.4); *SPE ALPHA-2-GLOBULIN 0.7 g/dL (0.4-1.0); *SPE M-SPIKE Not Observed g/dL (Not Observed)
--- NOTE | 2022-10-10 11:15 | NUR ---
RN NOTE ORTHOSTATIC BLOOD PRESSURE LAYING 163/78 SITTING 163/74 STANDING 143/79
[2022-10-10] MEDS: IV NS 0.9% 1,000 ML IV SCH ×2 (11:38→21:24)
[2022-10-10 15:32] LABS: LYMPHOCYTES % (MANUAL) 42 % (16-48); MONOCYTES % (MANUAL) 18 % (0-11.0); NEUTROPHILS % (MANUAL) 40 (42-76)
--- NOTE | 2022-10-10 16:50 | NUR ---
SS NOTE: SS consult requested for this 81 year old Black female who was admitted to [facility] on 10/08/2022 after pt. was found down at home . Per EMR, pt. stated she "slipped". and fell at home. Pt. resides at home [[id number] [facility] [address]] with granddaughter, Adelaide Fuchs [phone]. SW called granddaughter to gather collateral information and discuss safe discharge planning. However, call went to voicemail and SW left brief message and call back number. SW will follow up with pt. at bedside and communicate with the pt.'s family to form a safe and proper discharge plan. ZENY discussed with CM about DC plan and per CM, the pt.'s daughter refused SNF placement and requested for pt. to DC to home with caregiving.
[2022-10-10] MEDS: ENSURE ENLIVE 237 ML LIQUID (VANILLA) PO SCH (17:40)
[2022-10-10 17:50] LABS: HEMOGLOBIN 7.7 g/dL (11.5-14.8)
--- NOTE | 2022-10-10 18:37 | NUR ---
AIR BAG BUILDER CLOSING NOTE PT IN BED AWAKE, A/O X3, ON ROOM AIR, NO SOB/DISTRESS NOTED. ON TELE MONITOR SR WITH HR OF 72. PACEMAKER INTACT ON L CHEST WALL, DRESSING IS CLEAN AND DRY. MIDLINE IN LEFT UPPER ARM 18G RUNNING NS AT 75MLS/HR. RIGHT AC 20G SL. ALL DUE MEDS WERE GIVEN AND NEEDS ATTENDED. SAFETY MEASURES IN PLACE: BED LOCKED IN LOWEST POSITION, SIDE RAILS UP X3, CALL LIGHT WITHIN REACH. WILL ENDORSE TO ONCOMING NURSE FOR LUIS ALFREDO.
--- NOTE | 2022-10-10 19:30 | NUR ---
ELECTRONICS MAINTENANCE TECHNICIAN OPENING NOTE RECEIVED PATIENT IN BED, WITH HOB ELEVATED, ALERT AND ORIENTED X3. ABLE TO COMMUNICATE NEEDS WITH THE STAFFS. AFEBRILE AND NOT IN ANY FORM OF ACUTE DISTRESS. BREATHING EVEN AND ON LABORED. ON TELE MONITORING WITH CURRENT TREADING OF SR. WITH IV ACCESS ON AMINAH MIDLINE RUNNING WITH NS AT 75ML/HR. SAFETY MEASURES IN PLACE. KEPT BED IN LOCKED AND IN LOW POSITION. SIDE RAILS UP X2. ADVISED TO USE THE CALL LIGHT WHEN IN NEED OF ASSISTANCE.
[2022-10-10] MEDS: CEFTRIAXONE 1 G in IV D5W 50 ML IV SCH (20:00)
[2022-10-11] VITALS (7 sets, daily range): BP systolic 118–157; BP diastolic 57–79
--- NOTE | 2022-10-11 06:30 | NUR ---
VENEREAL DISEASE INVESTIGATOR CLOSING NOTE PATIENT IN BED, WITH HOB ELEVATED, SLEEPING INTERMITTENTLY. ABLE TO COMMUNICATE NEEDS WITH THE STAFFS. AFEBRILE AND NOT IN ANY FORM OF ACUTE DISTRESS. BREATHING EVEN AND ON LABORED. NOTED WITH PACEMAKER ON L ANTERIOR CHEST WALL. ON TELE MONITORING WITH CURRENT TREADING OF SR 91 WITH OCCASIONAL PVC. WITH IV ACCESS ON AMINAH MIDLINE RUNNING WITH NS AT 75ML/HR. MEDICATED ORDERED. CONTINUOUS ON IV ATB, MONITORED FOR ANY ADVERSE REACTION. SAFETY MEASURES IN PLACE. KEPT BED IN LOCKED AND IN LOW POSITION. SIDE RAILS UP X2. ADVISED TO USE THE CALL LIGHT WHEN IN NEED OF ASSISTANCE. ALL NURSING NEEDS ATTENDED. ENDORSED TO INCOMING SHIFT FOR CONTINUITY OF CARE.
[2022-10-11 07:33] LABS: BASOPHILS % (AUTO) 1.2 % (0.0-2.0); EOSINOPHILS % (AUTO) 1.9 % (0.0-6.0); HEMATOCRIT 25 % (33-45); LYMPHOCYTES # (AUTO) 1.8 K/uL (0.8-4.8); LYMPHOCYTES % (AUTO) 43.2 % (20.0-44.0); MEAN CORPUSCULAR HGB CONC 32 g/dl (31.0-36.0); MEAN CORPUSCULAR VOLUME 88 fL (82-100); MONOCYTES # (AUTO) 0.7 K/uL (0.1-1.30); MONOCYTES % (AUTO) 17.4 % (2.0-12.0); NEUTROPHILS # (AUTO) 1.5 K/uL (1.8-8.9); NEUTROPHILS % (AUTO) 36.3 % (43.0-81.0); PLATELET COUNT (AUTO) 276 K/uL (150-450); RED BLOOD CELL COUNT(AUTO) 2.85 MIL/uL (4.0-5.2); WHITE BLOOD COUNT (AUTO) 4.2 K/uL (4.3-11.0)
[2022-10-11 07:40] LABS: CALCIUM, SERUM 8.7 mg/dL (8.5-10.1); CARBON DIOXIDE 26 mmol/L (21-32); CHLORIDE 101 mmol/L (98-107); CREATININE 0.6 mg/dL (0.6-1.3); GLUCOSE 108 mg/dL (74-106); POTASSIUM 3.2 mmol/L (3.5-5.1); SODIUM SERUM 136 mmol/L (136-145); UREA NITROGEN, BLOOD 6 mg/dL (7-18)
[2022-10-11 07:45] LABS: ALANINE AMINOTRANSFERASE 19 U/L (12-78); ALKALINE PHOSPHATASE 68 U/L (46-116); ASPARTATE AMINOTRANSFERASE 17 U/L (15-37); BILIRUBIN,TOTAL 0.4 mg/dL (0.2-1.0); TOTAL PROTEIN, SERUM 7.7 g/dL (6.4-8.2)
[2022-10-11] MEDS: FERROUS SULFATE (325 MG) 325 MG/TAB TABLET PO SCH (08:19)
[2022-10-11] MEDS: LEVOTHYROXINE SODIUM 25 MCG TABLET PO SCH (08:20)
[2022-10-11] MEDS: SERTRALINE HCL 25 MG TABLET PO SCH (08:20)
[2022-10-11] MEDS: DONEPEZIL 5 MG TABLET PO SCH (08:21)
[2022-10-11] MEDS: PANTOPRAZOLE 40 MG TABLET.DR PO SCH (08:22)
[2022-10-11] MEDS: ENSURE ENLIVE 237 ML LIQUID (VANILLA) PO SCH ×2 (08:22→17:25)
[2022-10-11] MEDS: CHOLECALCIFEROL 1,000 UNIT TABLET (VIT D3) PO SCH (08:23)
[2022-10-11] MEDS: APIXABAN 2.5 MG TABLET PO SCH ×2 (08:50→17:24)
[2022-10-11] MEDS: MIDODRINE HCL (5MG) 5 MG TABLET PO SCH ×4 (08:51→17:30)
[2022-10-11] MEDS: CARVEDILOL 6.25 MG TABLET PO SCH ×2 (08:52→17:22)
[2022-10-11] MEDS: Z GUARD REMEDY 4 OZ OINT TP SCH (09:00)
[2022-10-11] MEDS: IV NS 0.9% 1,000 ML IV SCH (11:40)
[2022-10-11] MEDS ORDERED: POTASSIUM CHLORIDE 20 MEQ TAB.PRT.SR PO SCH (12:00)
[2022-10-11] MEDS ORDERED: POTASSIUM CHLORIDE 20 MEQ TAB.PRT.SR PO ONE (12:00)
[2022-10-11 12:07] LABS: *ANA ANTI-CENTROMERE B AB 0.5 AI (0.0-0.9); *ANA ANTI-DNA(DS) AB, QN <1 IU/mL (0-9); *ANA ANTI-JO-1 <0.2 AI (0.0-0.9); *ANA ANTICHROMATIN ANTIBODY 0.2 AI (0.0-0.9); *ANA RNP ANTIBODIES 0.3 AI (0.0-0.9); *ANA SJOGREN'S ANTI-SS-A 4.7 AI (0.0-0.9); *ANA SJOGREN'S ANTI-SS-B <0.2 AI (0.0-0.9); *ANAANTI-SCLERODERMA-70 AB <0.2 AI (0.0-0.9); *ANASMITH AB <0.2 AI (0.0-0.9)
[2022-10-11] MEDS: HYDROGEL DRESSING 90 GM TUBE TP SCH (12:39)
[2022-10-11 14:01] LABS: EOSINOPHILS % (MANUAL) 4 % (0-4); LYMPHOCYTES % (MANUAL) 47 % (16-48); MONOCYTES % (MANUAL) 17 % (0-11.0); NEUTROPHILS % (MANUAL) 32 (42-76)
[2022-10-11] MEDS: CEFTRIAXONE 1 G in IV D5W 50 ML IV SCH (21:25)
[2022-10-12] VITALS: BP 162/68
[2022-10-12] MEDS: IV NS 0.9% 1,000 ML IV SCH (01:00)
[2022-10-12 04:00] VITALS: BP 151/69
[2022-10-12 07:17] LABS: CARBON DIOXIDE 27 mmol/L (21-32); CHLORIDE 104 mmol/L (98-107); CREATININE 0.7 mg/dL (0.6-1.3); GLUCOSE 103 mg/dL (74-106); POTASSIUM 4.1 mmol/L (3.5-5.1); SODIUM SERUM 137 mmol/L (136-145); UREA NITROGEN, BLOOD 6 mg/dL (7-18)
[2022-10-12 07:25] LABS: ALANINE AMINOTRANSFERASE 14 U/L (12-78); ALBUMIN 2.8 g/dL (3.4-5.0); ALKALINE PHOSPHATASE 66 U/L (46-116); ASPARTATE AMINOTRANSFERASE 15 U/L (15-37); BILIRUBIN,TOTAL 0.4 mg/dL (0.2-1.0); TOTAL PROTEIN, SERUM 7.4 g/dL (6.4-8.2)
[2022-10-12 08:00] VITALS: BP_SYST 142; BP_SYST 157; BP_SYST 174; BP_DIAS 78; BP_DIAS 79; BP_DIAS 85
[2022-10-12] MEDS: PANTOPRAZOLE 40 MG TABLET.DR PO SCH (08:52)
[2022-10-12] MEDS: LEVOTHYROXINE SODIUM 25 MCG TABLET PO SCH (08:52)
[2022-10-12] MEDS: ENSURE ENLIVE 237 ML LIQUID (VANILLA) PO SCH ×4 (08:52→16:59)
[2022-10-12] MEDS: Z GUARD REMEDY 4 OZ OINT TP SCH (09:00)
[2022-10-12] MEDS: MIDODRINE HCL (5MG) 5 MG TABLET PO SCH ×3 (09:00→17:04)
[2022-10-12] MEDS: HYDROGEL DRESSING 90 GM TUBE TP SCH (09:00)
--- NOTE | 2022-10-12 10:05 | NUR ---
RN NOTE SPOKE TO DIETARY, WILL MONITOR CALORIE COUNT STARTING TODAY AT LUNCH.
[2022-10-12] MEDS: DONEPEZIL 5 MG TABLET PO SCH (11:12)
[2022-10-12] MEDS: CHOLECALCIFEROL 1,000 UNIT TABLET (VIT D3) PO SCH (11:18)
[2022-10-12] MEDS: SERTRALINE HCL 25 MG TABLET PO SCH (11:18)
[2022-10-12] MEDS: APIXABAN 2.5 MG TABLET PO SCH ×2 (11:18→16:45)
[2022-10-12] MEDS: CARVEDILOL 6.25 MG TABLET PO SCH ×2 (11:18→17:02)
[2022-10-12 12:00] VITALS: BP 154/71
--- NOTE | 2022-10-12 14:15 | NUR ---
SS Note: ZENY followed up and met with pt. at bedside. The pt. is alert & oriented x 3 ad makes good eye contact. SW discussed possible caregiving services for pt. as she has has multiple syncopal episodes. Pt. was receptive to caregiving in her home and SW provided her with caregiving resources which pt. accepted. Pt. stated that multiple times that she would like to discharge to home soon. Pt. gave consent for SW to call her family. ZENY called the pt.'s granddaughter, Adelaide Fuchs [phone] and discussed above stated information. Adelaide was receptive to discussing safe discharge planning. Adelaide stated she works as a therapist at home so she is home a lot of the time and she would want he pt. too DC on Saturday. ZENY informed Adelaide the medical team will do their best to have the pt. return home as soon as possible. Adelaide was agreeable. Per CM note, the discharge plan is for the pt. to return home [[id number] [facility] [address]]with home health. The pt. resides at home with granddaughter, Adelaide Fuchs [phone]. CM will follow up with transportation and home health. ZENY provided pt. with the following resources: ABUSE PREVENTION: ELDER ABUSE HOTLINE (25/03) ADULT PROTECTIVE SERVICES HOTLINE LONG-TERM CARE [facility] Region AREA ON AGING (HOTLINE) ADULT DAY HEALTH CARE CARE CENTERS: Private pay or [facility] funded adult day care [place] [facility] , [facility] Integration Services , [facility] Adult Care Center , [facility] Adult [facility] Health Care , [facility] Adult Day Health Care , [facility] Adult [facility] Center , [facility] , [facility] Adult [place] , [place] ALZHEIMERS DISEASE/DEMENTIA: Alzheimers Association Helpline [facility] Chapter www.alz.org/[facility] Department of Aging www.lacity.org Family Caregiver [place] www.caregiver.org [place] Caregiver Resources Center/Family Support www.[facility].org CANCER RESOURCES: Micronesian Cancer Society www.cancer.org Cancer Support Community www.CancerSupportVvsb.org: CancerCare www.cancercare.org [facility] Cancer Support [place] www.[facility].org PSYCHIATRIC HOSPITAL HEALTH ASSOCIATIONS: AARP www.aarp.org ALS Association (ask for Stephanie) www.als.org Micronesian Diabetes Association www.diabetes.org Micronesian Heart Association www.heart.org Micronesian Lung Association www.lungusa.org Micronesian Parkinson Disease Association www.apdaparkinson.org Micronesian [place] , www.redcross.org Arthritis Foundation www.arthritis.org Crohns & Colitis Foundation of Micronesian www.ccfa.org/chapters/rossy National Multiple Sclerosis Society www.nationalmssociety.org Myasthenia Gravis Foundation www.myasthenia-ca.org National Stroke Association www.stroke.org CONSERVATORSHIP & GUARDIANSHIP: AARP Chuyita Negrete Legal Services Center for Health Care Rights [facility]are Information and Referral Health Sciences Manager [facility]: [facility] Bar Referral Service [facility] Neighborhood Legal Services Office of the Public Guardian [place] EYESIGHT DISORDER RESOURCES: Micronesian Macular Degeneration Foundation [facility] www.[facility].org GRIEF AND BEREAVEMENT RESOURCES: The [place] , [facility] THE HOPE Connection , [facility] Bereavement Center , [place] HEARING DISORDER RESOURCES: [place] Telephone Access Program Deaf and Disabled Telecommunications Program www.ddtp.[facility].ca.gov HearRx Hearing Centers ([place]) Better Hearing Systems , [place] GLAD ([facility] Agency on Deafness) V/ TTY; Portrait Consultant , [facility] Hearing Nemours Foundation -low income hearing aid assistance www.ProudOnTVwyandot memorial hospitalringfoundation.org [place] [facility] , Curly HELP AT HOME CAREGIVER SUPPORT: In Home Support Services (Must have Medi-Jamie to be eligible) *Ask for a list of agencies that provide services to assist with care in the home. Local Senior Centers also have listings of care providers. HOME SAFETY MODIFICATIONS AND EQUIPMENT: Senior centers have additional referrals. [place] Housing and Community Investment Dept. Handyworker Program (low income) or Visit http://hcidla.[facility] for respiratory [facility] complex careity.org/jyv-vxmhdc-us for more information National Seating and Mobility and/or ; Forever Active www.foreverHelpAround.Pirate Pay Stay Home Safe www.Stayhomesafe.com LIFE ALERT RESPONSE SYSTEM: Blued Services 747-340-6532 www. MedCenterDisplay.Pirate Pay Life Alert 176-868-2225 www.MMIM Technologies (PICA).Pirate Pay Life Station 117-526-0956 www.Poptent.Pirate Pay Safe Return 621-090-5346 www.picsell.or/safereturn Cell Phones for Seniors www.MetGen MEALS AND FOOD PROGRAMS: [place]ep Meals on Wheels [phone] [place] Meals on Wheels [phone] [facility] [phone] [place] to the Homebound [phone] [place] to the Homebound [phone] [facility] to the Homebound [phone] [facility] to the Homebound [phone] [facility] [phone] [facility] [phone] ONE Generation [phone] [facility] [phone] [facility] [phone] Meals on Wheels [phone] For all ages: $6.85/ meal w side. Delivered M-F from 10 am-1pm. Application and payment is done over the phone. Frozen meals available for weekends. Emergency Food [facility] [phone] [facility] Cyber Special Agent [phone] [facility] [phone] [facility]- Brown bag lunches [phone] [facility] [phone] MEAL/GROCERY DELIVERY PROGRAMS: [facility] Gourmet Meals [phone]- [facility] [phone]- [facility] Magic Kitchen [phone] Moms Meals [phone] (ask [place] for Discount Select grocery stores may provide delivery. MEDICAL INSURANCE SUPPORT SERVICES: Center for Health Care Rights [phone] Health Insurance Counseling/Advocacy Programs (HICAP)-Must have Medicare. Offers counseling for Medi-Jamie eligibility [phone] Department of Public Cyber Special Agent [phone] www.[facility].ca.gov Medicare 881-929-5898 www.socialsecurity.org Social Security [phone] SENIOR ACTIVITY PROGRAMS: *Contact a local senior center, adult school, recreation facility or community college for education, fitness, recreation, and social programs. Aquatic Therapy and Adapted Exercise programs through [facility] [phone] Encore at [facility] [phone] www.[facility]/encore U- Senior Friends [phone] [place] Senior Programs 614-048-2817 www.oasisnet.org Suddenly 65 www.bqphdpae96.com SENIOR CENTERS: [facility] [phone] [facility] [phone] [facility] [phone] [facility] [phone] [facility] [phone] [facility] [phone] [facility] [phone] [facility] [phone] [facility] [phone] [facility] [phone] [facility] [phone] [facility] [phone] [facility] [phone] TRANSPORTATION: Local [facility] may have applications for transportation programs and additional resources. ACCESS Services [phone] Transportation for seniors and disabled persons 7 days a week requiring 254 hr. advance reservation. Must apply and register for program juan eligible. [employer] [phone] or [phone] Transportation for seniors and persons with ADA card/metro disabled card in the [facility]. M-F only. Must register for services. ONE GENERATION [phone] Serves 65 years + in conjunction with city ride program. Must be registered with both programs. A to B Transport [phone] Provides wheelchair/gurney van service. Adult Medical Transport [phone] Accepts [facility]-jamie with prior authorization. Care Van [phone] Provides wheelchair Transport. [facility] Wide Transportation [phone] Provides gurney service Gentle Care [phone] Gurney Transport. All Town Transportation [phone] wheelchair & gurney transport GMD Transportation [phone] wheelchair & gurney transport [place] Non-Emergency Transport [phone] wheelchair & gurney transport [facility] Living [place] [phone] Short Term Transportation primarily for adults with disabilities on social security income. Nominal fee may apply and a reservation is required. [facility] [phone] or [phone] [facility] [phone] [place] [address] Referral Services -[phone] For additional programs & services VETERANS RESOURCES: Submissions for Aid and Attendance should be done directly to [facility] office locatd at : [address] [address] X110 National Caregiver Support Line [phone] [facility] Veterans Services Field Office [phone] [place] Department of [place] Affairs [phone] Pension Information [phone]
[2022-10-12 16:00] VITALS: BP 160/78
--- NOTE | 2022-10-12 16:43 | NUR ---
RN NOTE NORMA (GRANDDAUGHTER) STATED WILL ARRIVE TONIGHT AFTER 1999 TO PERSONALLY SIGN CONSENT FOR BONE MARROW BIOPSY FOR Saturday10/15/2022. HOLDING JOCELYN OF NOW.
[2022-10-12 20:00] VITALS: BP 137/62
--- NOTE | 2022-10-12 20:00 | NUR ---
RECEIVED PATIENT IN BED, ALERT/ORIENTED X3, ROOM AIR, NO COMPLAIN OF PAIN, S/P PACEMAKER PLACEMENT, UNABLE TO STATE WHEN, DRESSING DRY AND INTACT, BEDREST, FALL PRECAUTION, WILL CONTINUE TO MONITOR, CALL LIGHT WITHIN REACH.
[2022-10-12] MEDS: CEFTRIAXONE 1 G in IV D5W 50 ML IV SCH (20:32)
[2022-10-13] VITALS: BP 175/74
[2022-10-13 04:00] VITALS: BP 163/84
--- NOTE | 2022-10-13 06:05 | NUR ---
ALERT/ORIENTED X3, STABLE ON ROOM AIR, NO COMPLAIN OF PAIN, LEFT CHEST WALL PACEMAKER INSERTION SITE DRY AND INTACT, NO DRAINAGE, NO BLEEDING, INCONTINENT OF BOWEL AND BLADDER, RIGHT LEG LYMPHEDEMA, SKIN DRY AND FLAKY, REFUSED TO REMOVE HEAD CAP.. FOR BONE MARROW BIOPSY BY DR. AKBAR, 10/15/22, CONSENT SIGNED, HOLD SHERRY BANKS FOR UTI
--- NOTE | 2022-10-13 07:15 | NUR ---
FERN PICKER OPEN NOTE: ALERT AND ORIENTED TO NAME,TIME AND PLACE. MOIST ORAL MUCOSA. UNLABORED BREATHING AT ROOM AIR, SATING AT 96%. ON ELECTRICIAN MARINE SINUS RHYTHM. PACEMAKER ON LEFT UPPER CHEST. BRENDA IV SITE PATENT. INTACT. LAC IV SITE PATENT INTACT. NO S/S OF COMPLICATIONS. HOB ELEVATED AT SEMI-FOWLERS POSITION. BILATERAL HALF SIDE RAILS UP X2. BED LOCKED, IN LOW POSITION. CALL LIGHT IN REACH. DENIES PAIN OR DISCOMFORT.
[2022-10-13 07:31] LABS: BASOPHILS # (AUTO) 0.1 K/uL (0.0-0.2); BASOPHILS % (AUTO) 1.5 % (0.0-2.0); EOSINOPHILS % (AUTO) 1.8 % (0.0-6.0); HEMATOCRIT 26 % (33-45); HEMOGLOBIN 8.8 g/dL (11.5-14.8); LYMPHOCYTES # (AUTO) 1.7 K/uL (0.8-4.8); LYMPHOCYTES % (AUTO) 43.8 % (20.0-44.0); MEAN CORPUSCULAR HGB CONC 33 g/dl (31.0-36.0); MEAN CORPUSCULAR VOLUME 87 fL (82-100); MONOCYTES # (AUTO) 0.6 K/uL (0.1-1.30); MONOCYTES % (AUTO) 16.6 % (2.0-12.0); NEUTROPHILS # (AUTO) 1.4 K/uL (1.8-8.9); NEUTROPHILS % (AUTO) 36.3 % (43.0-81.0); PLATELET COUNT (AUTO) 306 K/uL (150-450); RED BLOOD CELL COUNT(AUTO) 3.03 MIL/uL (4.0-5.2); WHITE BLOOD COUNT (AUTO) 3.9 K/uL (4.3-11.0)
[2022-10-13 08:00] VITALS: BP 161/77
[2022-10-13 08:06] LABS: BILIRUBIN,TOTAL 0.4 mg/dL (0.2-1.0); CALCIUM, SERUM 9.3 mg/dL (8.5-10.1); CREATININE 0.7 mg/dL (0.6-1.3); MAGNESIUM 2.1 mg/dL (1.8-2.4); PHOSPHORUS 3.3 mg/dL (2.5-4.9); POTASSIUM 3.8 mmol/L (3.5-5.1); TOTAL PROTEIN, SERUM 7.8 g/dL (6.4-8.2)
[2022-10-13] MEDS: LEVOTHYROXINE SODIUM 25 MCG TABLET PO SCH (08:13)
[2022-10-13] MEDS: PANTOPRAZOLE 40 MG TABLET.DR PO SCH (08:13)
[2022-10-13] MEDS: ENSURE ENLIVE 237 ML LIQUID (VANILLA) PO SCH ×3 (08:15→17:46)
[2022-10-13] MEDS: APIXABAN 2.5 MG TABLET PO SCH (09:00)
[2022-10-13] MEDS: MIDODRINE HCL (5MG) 5 MG TABLET PO SCH ×3 (09:00→17:00)
[2022-10-13] MEDS: DONEPEZIL 5 MG TABLET PO SCH (09:09)
[2022-10-13] MEDS: CARVEDILOL 6.25 MG TABLET PO SCH ×2 (09:10→17:48)
[2022-10-13] MEDS: SERTRALINE HCL 25 MG TABLET PO SCH (09:12)
[2022-10-13] MEDS: CHOLECALCIFEROL 1,000 UNIT TABLET (VIT D3) PO SCH (09:12)
--- NOTE | 2022-10-13 09:12 | NUR ---
Rashmi held, to be on hold x2 days for bone marrow biopsy on Saturday. Chanell held BP 160/80.
[2022-10-13] MEDS: HYDROGEL DRESSING 90 GM TUBE TP SCH (11:28)
[2022-10-13] MEDS: Z GUARD REMEDY 4 OZ OINT TP SCH (11:31)
[2022-10-13 12:00] VITALS: BP 141/76
--- NOTE | 2022-10-13 12:54 | NUR ---
Chanell held BP 141/76.
[2022-10-13 16:00] VITALS: BP 152/77
[2022-10-13 16:50] LABS: EOSINOPHILS % (MANUAL) 3 % (0-4); LYMPHOCYTES % (MANUAL) 38 % (16-48); MONOCYTES % (MANUAL) 12 % (0-11.0); NEUTROPHILS % (MANUAL) 47 (42-76)
--- NOTE | 2022-10-13 17:49 | NUR ---
Chanell beaulieu BP 1 Addendum: 10/13/22 at 1749 by ENRIQUE PERALTA RN Chanell beaulieu BP 152/77
--- NOTE | 2022-10-13 18:36 | NUR ---
RAG CUTTING MACHINE OPERATOR CLOSING NOTE: ALERT AND ORIENTED TO NAME,TIME AND PLACE. MOIST ORAL MUCOSA. UNLABORED BREATHING AT ROOM AIR, SATING AT 96%. ON TROUT FARMER SINUS RHYTHM. PACEMAKER ON LEFT UPPER CHEST. RIGHT ARM IV SITE PATENT. INTACT. LAC IV SITE PATENT INTACT. NO S/S OF COMPLICATIONS. HOB ELEVATED AT SEMI-FOWLERS POSITION. BILATERAL HALF SIDE RAILS UP X2. BED LOCKED, IN LOW POSITION. CALL LIGHT IN REACH. DENIES PAIN OR DISCOMFORT. CONTINUES ON CALORIE COUNT, POOR PO INTAKE. VISITED BY GRAND DAUGHTER.
--- NOTE | 2022-10-13 19:05 | NUR ---
RN NOTES: RECEIVED LYING COMFORTABLY IN BED, A/OX 1-2 WITH PERIODS OF FORGETFULNESS, ON TELE MONITOR SR-78 WITH PACEMAKER, ORIENTED TO UNIT AND STAFF, ON ROOM AIR, NON LABORED BREATHING, RIGHT LEG KEPT ELEVATED WHILE IN BED FOR LYMPHEDEMA,BRENDA G320 HL IN SITE, ELIQUIS ON HOLD FOR BONE MARROW BIOPSY ON SATURDAY, CONSENT SIGNED, ON CALORIE COUNT. KEPT IN SEMI FOWLERS POSITION KEPT CALL LIGHT WITHIN EASY REACH.
[2022-10-13 20:00] VITALS: BP 146/74
--- NOTE | 2022-10-13 20:30 | NUR ---
RN NOTES: GRAND DAUGHTER PRESENT AT BED SIDE, SHE BROUGHT HER RICE WITH CHICKEN AND VEGETABLE,SHE EAT HALF OF THE BOWL, REQUEST FOR RAISIN BREAD INSTEAD OF TIRADO CAKE IN THE MORNING, WILL F/U TOMORROW IN KITCHEN DURING BREAKFAST.ASPIRATION PRECAUTION OBSERVED, ENCOURAGE FLUIDS TOLERATED.
[2022-10-14] VITALS: BP 158/82
[2022-10-14 04:00] VITALS: BP 145/72
[2022-10-14 06:50] LABS: BASOPHILS % (AUTO) 0.6 % (0.0-2.0); EOSINOPHILS % (AUTO) 1.8 % (0.0-6.0); HEMATOCRIT 25 % (33-45); HEMOGLOBIN 8.2 g/dL (11.5-14.8); LYMPHOCYTES % (AUTO) 49.2 % (20.0-44.0); MEAN CORPUSCULAR HGB CONC 32 g/dl (31.0-36.0); MEAN CORPUSCULAR VOLUME 87 fL (82-100); MONOCYTES # (AUTO) 0.7 K/uL (0.1-1.30); MONOCYTES % (AUTO) 17.7 % (2.0-12.0); NEUTROPHILS # (AUTO) 1.2 K/uL (1.8-8.9); NEUTROPHILS % (AUTO) 30.7 % (43.0-81.0); PLATELET COUNT (AUTO) 322 K/uL (150-450); RED BLOOD CELL COUNT(AUTO) 2.92 MIL/uL (4.0-5.2)
[2022-10-14 07:00] LABS: CALCIUM, SERUM 9.2 mg/dL (8.5-10.1); CREATININE 0.6 mg/dL (0.6-1.3); POTASSIUM 3.9 mmol/L (3.5-5.1)
[2022-10-14 07:06] LABS: ALBUMIN 2.9 g/dL (3.4-5.0); BILIRUBIN,TOTAL 0.4 mg/dL (0.2-1.0); MAGNESIUM 2.1 mg/dL (1.8-2.4); PHOSPHORUS 3.5 mg/dL (2.5-4.9); TOTAL PROTEIN, SERUM 7.4 g/dL (6.4-8.2)
--- NOTE | 2022-10-14 07:16 | NUR ---
RN NOTES: SLEEP WELL IN THE NIGHT, MORNING CARE DONE, NO COMPLAINTS OF PAIN OR DISCOMFORT, NON LABORED BREATHING, NEEDS ANTICIPATED, KEPT CALL LIGHT WITHIN EASY EACH, FOR LABS IN THE MORNING, ENDORSED FOR CONTINUITY OF CARE.
--- NOTE | 2022-10-14 07:25 | NUR ---
SPECIALTY DEPARTMENT SUPERVISOR OPEN NOTE: ALERT AND ORIENTED TO NAME,TIME AND PLACE. MOIST ORAL MUCOSA. UNLABORED BREATHING AT ROOM AIR. CORPORATE LAW SPECIALIST SINUS RHYTHM 9. PACEMAKER ON LEFT UPPER CHEST. BRENDA IV SITE PATENT. INTACT. LT ARM IV SITE PATENT INTACT. PURE WICK ON. HOB ELEVATED AT SEMI-FOWLERS POSITION. BILATERAL HALF SIDE RAILS UP X2. BED LOCKED, IN LOW POSITION. CALL LIGHT IN REACH. DENIES PAIN OR DISCOMFORT.
[2022-10-14 08:00] VITALS: BP 160/80
[2022-10-14] MEDS: PANTOPRAZOLE 40 MG TABLET.DR PO SCH (08:16)
[2022-10-14] MEDS: LEVOTHYROXINE SODIUM 25 MCG TABLET PO SCH (08:16)
[2022-10-14] MEDS: ENSURE ENLIVE 237 ML LIQUID (VANILLA) PO SCH ×3 (08:16→17:21)
[2022-10-14] MEDS: MIDODRINE HCL (5MG) 5 MG TABLET PO SCH ×3 (09:00→17:00)
[2022-10-14] MEDS: DONEPEZIL 5 MG TABLET PO SCH (09:25)
[2022-10-14] MEDS: CHOLECALCIFEROL 1,000 UNIT TABLET (VIT D3) PO SCH (09:25)
[2022-10-14] MEDS: CARVEDILOL 6.25 MG TABLET PO SCH ×2 (09:26→17:20)
[2022-10-14] MEDS: SERTRALINE HCL 25 MG TABLET PO SCH (09:26)
--- NOTE | 2022-10-14 09:27 | NUR ---
Proamatine held BP 160/80.
[2022-10-14] MEDS: HYDROGEL DRESSING 90 GM TUBE TP SCH (09:34)
[2022-10-14] MEDS: Z GUARD REMEDY 4 OZ OINT TP SCH (09:35)
[2022-10-14 12:00] VITALS: BP 148/70
--- NOTE | 2022-10-14 13:00 | NUR ---
Chanell held BP 148/70.
[2022-10-14 16:00] VITALS: BP 135/73
[2022-10-14] MEDS ORDERED: LIDOCAINE 1% INJ 50 ML MDV IJ ONE (17:00)
--- NOTE | 2022-10-14 17:22 | NUR ---
Proamatine held BP 135/73.
--- NOTE | 2022-10-14 18:55 | NUR ---
PRINTER APPRENTICE CLOSING NOTE: ALERT AND ORIENTED TO NAME,TIME AND PLACE, WITH EPISODES OF FORGETFULNESS. MOIST ORAL MUCOSA. UNLABORED BREATHING AT ROOM AIR. PEOPLESOFT ANALYST SINUS RHYTHM. PACEMAKER ON LEFT UPPER CHEST. BRENDA IV SITE PATENT. INTACT. LT ARM IV SITE PATENT INTACT. INCONTINENT OF BLADDER. KEPT CLEAN AND COMFORTABLE. TURNED AND REPOSITIONED. CONTINUES WITH POOR APPETITE, AND ONGOING CALORIE COUNT. HOB ELEVATED AT SEMI-FOWLERS POSITION. BILATERAL HALF SIDE RAILS UP X2. BED LOCKED, IN LOW POSITION. CALL LIGHT IN REACH. DENIES PAIN OR DISCOMFORT. PATIENT TO HAVE A BONE MARROW BIOPSY TOMORROW. VISITED BY GRANDDAUGHTER IN AM.
--- NOTE | 2022-10-14 19:30 | NUR ---
PT AWAKE. A/OX3 WITH EPISODES OF FORGETFULNESS. ON ROOM AIR, TOLERATING WELL. TELE MONITOR SHOWS SINUS RHYTHM. PACEMAKER ON LEFT UPPER CHEST. IV ACCESS ON BRENDA AND LT AC ON SL. CONTINUES TO HAVE POOR APPETITE, AND ONGOING CALORIE COUNT. HOB ELEVATED AT SEMI-FOWLERS POSITION. PATIENT TO HAVE A BONE MARROW BIOPSY TOMORROW. SAFETY MEASURES IN PLACE. WILL CONTINUE PLAN OF CARE.
[2022-10-14 20:00] VITALS: BP 131/70
--- NOTE | 2022-10-14 23:11 | NUR ---
Endorsed to Charge nurse.
[2022-10-15 04:00] VITALS: BP 146/72
--- NOTE | 2022-10-15 07:30 | NUR ---
RN CLOSING NOTE RECEIVED PATIENT 2300. A/OX3. FORGETFUL. MED SURG STATUS. ROOM AIR. NO C/O PAIN. PLAN FOR BONE MARROW BIOPSY ,SUPPLIES AT BEDSIDE.
[2022-10-15 07:55] LABS: BASOPHILS % (AUTO) 0.8 % (0.0-2.0); EOSINOPHILS % (AUTO) 1.8 % (0.0-6.0); HEMATOCRIT 25 % (33-45); HEMOGLOBIN 8.2 g/dL (11.5-14.8); LYMPHOCYTES # (AUTO) 1.9 K/uL (0.8-4.8); LYMPHOCYTES % (AUTO) 50.8 % (20.0-44.0); MEAN CORPUSCULAR HGB CONC 33 g/dl (31.0-36.0); MEAN CORPUSCULAR VOLUME 86 fL (82-100); MONOCYTES # (AUTO) 0.6 K/uL (0.1-1.30); NEUTROPHILS # (AUTO) 1.1 K/uL (1.8-8.9); NEUTROPHILS % (AUTO) 30.6 % (43.0-81.0); PLATELET COUNT (AUTO) 398 K/uL (150-450); RED BLOOD CELL COUNT(AUTO) 2.87 MIL/uL (4.0-5.2); WHITE BLOOD COUNT (AUTO) 3.7 K/uL (4.3-11.0)
[2022-10-15 08:00] VITALS: BP 155/75
--- NOTE | 2022-10-15 08:00 | NUR ---
OPHTHALMIC TECHNICIAN APPRENTICE OPENING NOTE: ALERT AND ORIENTED TO NAME,TIME AND PLACE, WITH EPISODES OF FORGETFULNESS. UNLABORED BREATHING AT ROOM AIR. DIMENSION QUARRY SUPERVISOR SINUS RHYTHM. PACEMAKER ON LEFT UPPER CHEST. BRENDA ML SITE PATENT AND INTACT, FLUSHES WELL. CONTINUES WITH POOR APPETITE, AND ONGOING CALORIE COUNT. HOB ELEVATED AT SEMI-FOWLERS POSITION. BILATERAL HALF SIDE RAILS UP X2. BED LOCKED, IN LOW POSITION. CALL LIGHT IN REACH. PLAN OF CARE CONTINUE.
[2022-10-15 08:16] LABS: ALBUMIN 3.1 g/dL (3.4-5.0); BILIRUBIN,TOTAL 0.5 mg/dL (0.2-1.0); CALCIUM, SERUM 9.3 mg/dL (8.5-10.1); CREATININE 0.7 mg/dL (0.6-1.3); MAGNESIUM 2.1 mg/dL (1.8-2.4); PHOSPHORUS 3.6 mg/dL (2.5-4.9); TOTAL PROTEIN, SERUM 7.9 g/dL (6.4-8.2)
[2022-10-15] MEDS: DONEPEZIL 5 MG TABLET PO SCH (08:21)
[2022-10-15] MEDS: CHOLECALCIFEROL 1,000 UNIT TABLET (VIT D3) PO SCH (08:22)
[2022-10-15] MEDS: LEVOTHYROXINE SODIUM 25 MCG TABLET PO SCH (08:22)
[2022-10-15] MEDS: SERTRALINE HCL 25 MG TABLET PO SCH (08:22)
[2022-10-15] MEDS: PANTOPRAZOLE 40 MG TABLET.DR PO SCH (08:22)
[2022-10-15] MEDS: CARVEDILOL 6.25 MG TABLET PO SCH ×2 (08:23→16:27)
[2022-10-15] MEDS: ENSURE ENLIVE 237 ML LIQUID (VANILLA) PO SCH ×3 (08:24→16:24)
[2022-10-15] MEDS: Z GUARD REMEDY 4 OZ OINT TP SCH (08:33)
[2022-10-15] MEDS: HYDROGEL DRESSING 90 GM TUBE TP SCH (08:33)
[2022-10-15] MEDS: MIDODRINE HCL (5MG) 5 MG TABLET PO SCH ×3 (08:33→16:24)
[2022-10-15 08:59] LABS: EOSINOPHILS % (MANUAL) 1 % (0-4); LYMPHOCYTES % (MANUAL) 53 % (16-48); MONOCYTES % (MANUAL) 10 % (0-11.0); NEUTROPHILS % (MANUAL) 36 (42-76)
--- NOTE | 2022-10-15 16:00 | NUR ---
NOTED PATIENT ONLY HAVING 10% OF MEALS, DR. BILLINGSLEY AT BEDSIDE AND INFORMED, INFORMED DR. BILLINGSLEY THAT GRANDDAUGHTER WANT'S TO TALK TO MD. GAVE GRANDDAUGHTER PHONE NO TO DR. BILLINGSLEY.
--- NOTE | 2022-10-15 18:24 | NUR ---
MS RN CLOSING NOTE: PATIENT IS AWAKE WATCHING TV, ALERT AND ORIENTED TO NAME,TIME AND PLACE, WITH EPISODES OF FORGETFULNESS. UNLABORED BREATHING AT ROOM AIR. PACEMAKER ON LEFT UPPER CHEST. BRENDA ML SITE PATENT AND INTACT, FLUSHES WELL. HOB ELEVATED AT SEMI-FOWLERS POSITION. BILATERAL HALF SIDE RAILS UP X2. BED LOCKED, IN LOW POSITION. CALL LIGHT IN REACH. WILL ENDORSE TO MANAGER PROFESSIONAL DEVELOPMENT NURSE FOR LUIS ALFREDO.
[2022-10-15 20:00] VITALS: BP 111/68
--- NOTE | 2022-10-15 20:25 | NUR ---
LULU/RN PATIENT IS AWAKE, ALERT AND ORIENTED, NO C/O PAIN, NO DISTRESS NOTED, CALL LIGHT IN REACH, FALL PRECAUTIONS PER PROTOCOL IMPLEMENTED, WILL MONITOR.
[2022-10-16 05:00] VITALS: BP 146/69
--- NOTE | 2022-10-16 06:40 | NUR ---
LULU/RN PATIENT IS AWAKE, NO C/O PAIN, NO DISTRESS NOTED, CALL LIGHT IN REACH, PUREWICK CHANGED, CANISTER LINER CHANGED, NPO AFTER MIDNIGHT ORDERED FOR ULTRASOUND OF ABDOMEN TODAY, ALL NEEDS ATTENDED AT THIS TIME, WILL CONTINUE TO MONITOR.
[2022-10-16 07:22] LABS: EOSINOPHILS % (AUTO) 1.8 % (0.0-6.0); HEMATOCRIT 26 % (33-45); HEMOGLOBIN 8.7 g/dL (11.5-14.8); LYMPHOCYTES % (AUTO) 54.5 % (20.0-44.0); MEAN CORPUSCULAR HGB CONC 33 g/dl (31.0-36.0); MEAN CORPUSCULAR VOLUME 86 fL (82-100); MONOCYTES # (AUTO) 0.7 K/uL (0.1-1.30); MONOCYTES % (AUTO) 17.3 % (2.0-12.0); NEUTROPHILS % (AUTO) 25.4 % (43.0-81.0); PLATELET COUNT (AUTO) 445 K/uL (150-450); RED BLOOD CELL COUNT(AUTO) 3.07 MIL/uL (4.0-5.2); WHITE BLOOD COUNT (AUTO) 3.8 K/uL (4.3-11.0)
--- NOTE | 2022-10-16 07:23 | NUR ---
FACER OPERATOR OPENING NOTES Received pt asleep in bed AOX4. No signs of pain or discomfort at this time. Pt is currently on RA and tolerating it well. IV access on BRENDA 20G patent and intact. HOB elevated to pts comfort. Siderails up at all times. Bed at its lowest setting and locked. Call light within reach. Will continue to monitor.
[2022-10-16 07:32] LABS: CALCIUM, SERUM 9.6 mg/dL (8.5-10.1); CREATININE 0.7 mg/dL (0.6-1.3); POTASSIUM 4.2 mmol/L (3.5-5.1)
[2022-10-16 07:38] LABS: ALBUMIN 3.3 g/dL (3.4-5.0); BILIRUBIN,TOTAL 0.6 mg/dL (0.2-1.0); TOTAL PROTEIN, SERUM 8.3 g/dL (6.4-8.2)
[2022-10-16 07:43] LABS: MAGNESIUM 2.3 mg/dL (1.8-2.4); PHOSPHORUS 3.5 mg/dL (2.5-4.9)
[2022-10-16] MEDS: ENSURE ENLIVE 237 ML LIQUID (VANILLA) PO SCH ×4 (07:45→16:12)
[2022-10-16] MEDS: LEVOTHYROXINE SODIUM 25 MCG TABLET PO SCH (08:52)
[2022-10-16] MEDS: CHOLECALCIFEROL 1,000 UNIT TABLET (VIT D3) PO SCH (08:52)
[2022-10-16] MEDS: PANTOPRAZOLE 40 MG TABLET.DR PO SCH (08:52)
[2022-10-16] MEDS: DONEPEZIL 5 MG TABLET PO SCH (08:52)
[2022-10-16] MEDS: SERTRALINE HCL 25 MG TABLET PO SCH (08:53)
[2022-10-16] MEDS: CARVEDILOL 6.25 MG TABLET PO SCH ×2 (08:53→16:12)
[2022-10-16] MEDS: MIDODRINE HCL (5MG) 5 MG TABLET PO SCH ×3 (09:00→16:08)
[2022-10-16] MEDS: HYDROGEL DRESSING 90 GM TUBE TP SCH (09:01)
[2022-10-16] MEDS: Z GUARD REMEDY 4 OZ OINT TP SCH (09:01)
--- NOTE | 2022-10-16 09:01 | NUR ---
ELDER COUNSELOR NOTES Midordrine held d/t bp 176/63.
--- NOTE | 2022-10-16 11:18 | NUR ---
RIAZ NOTES Dr. Morgan at bedside talking with pt and her granddaughter about the plan for the pt. Dr. Morgan brought up pt isn't eating well and is only consuming 10% of the food. Talked about possible GT placement if pt continues to not eat and pt stated she did not want the GT. Pt stated that she will try and eat more. MD stated that if the pt is eating well at least 50% then we can start the discharge planning. Pt and granddaughter verbalized understanding.
[2022-10-16 13:00] VITALS: BP 144/71
--- NOTE | 2022-10-16 13:15 | NUR ---
LEASE ANALYST NOTES Midodrine not given d/t pts bp 144/71.
[2022-10-16] MEDS: SOD FERRIC GLUC 125 MG in IV NS 0.9% 100 ML IV SCH (15:48)
--- NOTE | 2022-10-16 16:09 | NUR ---
BAND SAW FILER NOTES Midodrine held d/t pts BP 141/48.
[2022-10-16 17:23] LABS: BAND % (MANUAL) 2 % (0.0-5.0); EOSINOPHILS % (MANUAL) 5 % (0-4); LYMPHOCYTES % (MANUAL) 45 % (16-48); MONOCYTES % (MANUAL) 12 % (0-11.0); NEUTROPHILS % (MANUAL) 36 (42-76)
[2022-10-16] MEDS ORDERED: MORPHINE SULFATE INJ 2 MG/ML DISP.SYRIN IV ONE (18:00)
[2022-10-16] MEDS ORDERED: LORAZEPAM 1 MG TABLET PO ONE (18:00)
--- NOTE | 2022-10-16 19:01 | NUR ---
CONVEYOR INSTALLER CLOSING NOTES All due meds and tx given as ordered. Pt tolerated everything well. All needs attended to. Bone marrow biopsy done. Pt tolerated the procedure well. Biopsy sent to lab.
--- NOTE | 2022-10-16 19:30 | NUR ---
MS RN OPENING NOTES - RECEIVED PATIENT SLEEPING IN BED, EASY TO AROUSE. A/O X3. BREATHING EVEN AND NON-LABORED ON ROOM AIR. NOT IN APPARENT DISTRESS. DENIES PAIN AT THIS TIME. HAS RIGHT ANTECUBITAL IV ACCESS #20G AND LEFT UPPER ARM MIDLINE #18G, BOTH SALINE LOCKED. NO S/S OF INFILTRATION NOTED. HAS PUREWICK CONNECTED TO CONTINUOUS SUCTION WITH CLEAR DARK YELLOW URINE. SAFETY PRECAUTIONS IN PLACE: BED LOCKED AND IN LOW POSITION, SIDE RAILS UP X2, CALL LIGHT WITHIN REACH. WILL CONTINUE PLAN OF CARE.
[2022-10-16 20:13] LABS: BASOPHILS % (AUTO) 0.9 % (0.0-2.0); EOSINOPHILS % (AUTO) 1.8 % (0.0-6.0); HEMATOCRIT 25 % (33-45); HEMOGLOBIN 8.2 g/dL (11.5-14.8); LYMPHOCYTES # (AUTO) 2.1 K/uL (0.8-4.8); LYMPHOCYTES % (AUTO) 47.2 % (20.0-44.0); MEAN CORPUSCULAR HGB CONC 33 g/dl (31.0-36.0); MEAN CORPUSCULAR VOLUME 87 fL (82-100); MONOCYTES # (AUTO) 0.8 K/uL (0.1-1.30); NEUTROPHILS # (AUTO) 1.5 K/uL (1.8-8.9); NEUTROPHILS % (AUTO) 32.1 % (43.0-81.0); PLATELET COUNT (AUTO) 448 K/uL (150-450); RED BLOOD CELL COUNT(AUTO) 2.85 MIL/uL (4.0-5.2); WHITE BLOOD COUNT (AUTO) 4.5 K/uL (4.3-11.0)
[2022-10-16 21:00] VITALS: BP 142/66
[2022-10-16 23:42] LABS: BASOPHILS % (MANUAL) 0 % (0.0-2.0); EOSINOPHILS % (MANUAL) 4 % (0-4); LYMPHOCYTES % (MANUAL) 49 % (16-48); MONOCYTES % (MANUAL) 16 % (0-11.0); NEUTROPHILS % (MANUAL) 31 (42-76)
[2022-10-17 05:00] VITALS: BP 133/76
--- NOTE | 2022-10-17 06:58 | NUR ---
MS RN CLOSING NOTES - PATIENT AWAKE. NO ACUTE DISTRESS THROUGHOUT THE NIGHT. ABLE TO VERBALIZED NEEDS. TOLERATING ROOM AIR WELL, NO SOB OR NOTED. AFEBRILE. RIGHT ANTECUBITAL IV ACCESS #20G AND LEFT UPPER ARM MIDLINE #18G INTACT, PATENT AND FLUSHING. CLEAR DARK YELLOW URINE NOTED. ALL DUE MEDS GIVEN AND NEEDS ATTENDED. SAFETY PRECAUTIONS MAINTAINED. WILL ENDORSE TO NEXT SHIFT FOR LUIS ALFREDO.
--- NOTE | 2022-10-17 07:25 | NUR ---
LICENSED MASS REAL ESTATE APPRAISER OPENING NOTES Received pt asleep in bed AOX4. No signs of pain or discomfort at this time. Pt is currently on RA and tolerating it well. IV access on BRENDA 20G patent and intact. HOB elevated to pts comfort. Siderails up at all times. Bed at its lowest setting and locked. Call light within reach. Will continue to monitor.
[2022-10-17 07:27] LABS: BASOPHILS % (AUTO) 0.9 % (0.0-2.0); EOSINOPHILS % (AUTO) 1.7 % (0.0-6.0); HEMATOCRIT 25 % (33-45); LYMPHOCYTES # (AUTO) 2.1 K/uL (0.8-4.8); LYMPHOCYTES % (AUTO) 52.9 % (20.0-44.0); MEAN CORPUSCULAR HGB CONC 32 g/dl (31.0-36.0); MEAN CORPUSCULAR VOLUME 86 fL (82-100); MONOCYTES # (AUTO) 0.7 K/uL (0.1-1.30); MONOCYTES % (AUTO) 18.6 % (2.0-12.0); NEUTROPHILS % (AUTO) 25.9 % (43.0-81.0); PLATELET COUNT (AUTO) 490 K/uL (150-450); RED BLOOD CELL COUNT(AUTO) 2.88 MIL/uL (4.0-5.2)
[2022-10-17] MEDS: ENSURE ENLIVE 237 ML LIQUID (VANILLA) PO SCH ×3 (08:00→16:42)
[2022-10-17 08:03] LABS: ALBUMIN 3.3 g/dL (3.4-5.0); BILIRUBIN,TOTAL 0.5 mg/dL (0.2-1.0); CALCIUM, SERUM 9.3 mg/dL (8.5-10.1); CREATININE 0.7 mg/dL (0.6-1.3)
[2022-10-17] MEDS: MIDODRINE HCL (5MG) 5 MG TABLET PO SCH ×3 (09:00→16:42)
[2022-10-17] MEDS: PANTOPRAZOLE 40 MG TABLET.DR PO SCH (09:08)
[2022-10-17] MEDS: CARVEDILOL 6.25 MG TABLET PO SCH ×2 (09:08→16:42)
[2022-10-17] MEDS: LEVOTHYROXINE SODIUM 25 MCG TABLET PO SCH (09:08)
[2022-10-17] MEDS: CHOLECALCIFEROL 1,000 UNIT TABLET (VIT D3) PO SCH (09:08)
[2022-10-17] MEDS: SERTRALINE HCL 25 MG TABLET PO SCH (09:08)
[2022-10-17] MEDS: DONEPEZIL 5 MG TABLET PO SCH (09:09)
[2022-10-17] MEDS: HYDROGEL DRESSING 90 GM TUBE TP SCH (09:09)
[2022-10-17] MEDS: Z GUARD REMEDY 4 OZ OINT TP SCH (09:09)
[2022-10-17] MEDS ORDERED: MIDO5TAB4 PO (11:29)
[2022-10-17 13:00] VITALS: BP 156/82
--- NOTE | 2022-10-17 13:20 | NUR ---
FIRST MATE NOTES Midodrine held d/t bp 140/79.
--- NOTE | 2022-10-17 13:24 | NUR ---
SECURITY INSTALLATION TECHNICIAN NOTES Pt cleaered for dischagre per MD. Left a message with Jose Rafael, granddaughter.
[2022-10-17] MEDS: SOD FERRIC GLUC 125 MG in IV NS 0.9% 100 ML IV SCH (15:16)
[2022-10-17 16:42] VITALS: BP 120/54
[2022-10-17 17:07] LABS: BAND % (MANUAL) 1 % (0.0-5.0); EOSINOPHILS % (MANUAL) 1 % (0-4); LYMPHOCYTES % (MANUAL) 15 % (16-48); MONOCYTES % (MANUAL) 4 % (0-11.0); NEUTROPHILS % (MANUAL) 79 (42-76)
--- NOTE | 2022-10-17 18:45 | NUR ---
PHOTOCOMPOSITION KEYBOARD OPERATOR NOTES Pt picked up by Adelaide (granddaughter). IV access removed. Packet with all pts information given to pt.
--- NOTE | 2022-10-19 12:06 | NUR ---
CHARGE NURSE NOTE CLARIFIED WITH DR. HOPKINS ABOUT DISCHARGE INSTRUCTION AAND COORDINATED WITH DAUGHTER NORMA PHONE NUMBER [phone]. PER DR. HOPKINS TO CALL IN FOR THE NEW PRESCRIPTION. CARRIED OUT. DISREGARD THE LIST OF STOPPED MEDICATIONS AND JUST FOLLOW THE CONTINUED MEDICATIONS' NEW PRESCRIPTION : MIDODRINE HCL 5MG 1 TAB ORAL TID DISPENSE 90 TABLETS NO REFILL CALLED IN TO [facility] [phone] SPOKE WITH RADHA
== END 2022-10-17 18:45 | disposition home or self-care (01) | DRG 690 ==
LOC: ER 11:08 → TELE1 15:11 → MEDSG1 10-14 16:17
PROVIDERS: ADMIT Internal Medicine
PROC: 05HC33Z Insertion of Infusion Device into Left Basilic Vein, Percutaneous Approach (ICD-10-PCS; 2022-10-10)
PROC: 07DR3ZX Extraction of Iliac Bone Marrow, Percutaneous Approach, Diagnostic (ICD-10-PCS; principal; 2022-10-16)
DX: N39.0 Urinary tract infection, site not specified (principal); D61.818 Other pancytopenia; E87.1 Hypo-osmolality and hyponatremia; I87.2 Venous insufficiency (chronic) (peripheral); Z79.899 Other long term (current) drug therapy; I95.1 Orthostatic hypotension; Z86.73 Personal history of transient ischemic attack (TIA), and cerebral infarction without residual deficits; Z20.822 Contact with and (suspected) exposure to COVID-19; Z95.0 Presence of cardiac pacemaker; Z79.01 Long term (current) use of anticoagulants; R00.1 Bradycardia, unspecified; D63.8 Anemia in other chronic diseases classified elsewhere; I10 Essential (primary) hypertension; E87.6 Hypokalemia; D72.821 Monocytosis (symptomatic); Z86.718 Personal history of other venous thrombosis and embolism; F09 Unspecified mental disorder due to known physiological condition; W19.XXXA Unspecified fall, initial encounter; Y92.9 Unspecified place or not applicable; D47.2 Monoclonal gammopathy; B96.89 Other specified bacterial agents as the cause of diseases classified elsewhere
CPT/HCPCS: 36415; 70450-TC; 71045-TC; 76700-TC; 80048-TC; 80053-TC; 80076-TC; 81001; 82232; 82607-TC; 82728-TC; 82784; 83540-TC; 83605-TC; 83735-TC; 84100-TC; 84155; 84165; 84439-TC; 84443-TC; 84484-TC; 85025-TC; 85027-TC; 85610-TC; 85730-TC; 86225; 86235; 86334; 86431-TC; 86706; 86803; 87040-TC; 87081-TC; 87086-TC; 87340; 97110-TC; 97112-TC; 97116-TC; 97530-TC; A6248; C9803; G0378; J0696; J2270; J2916; J3490; J7030; J7050; J7060

== ENCOUNTER 2023-01-19 16:32 | Emergency (ER) | payer MEDICARE ==
[~2023-01-19] VITALS: Ht 170.2 cm; Wt 68.9 kg
[~2023-01-19 16:32] MED LIST changes: +CHOL100043 PO; +MIDO5TAB4 PO
--- NOTE | 2023-01-19 16:35 | NUR ---
18 g L forearm present SOLVENT PLANT TREATER
--- NOTE | 2023-01-19 16:35 | NUR ---
PATIENT BIBA FOR SYCOPE AT HOME, PATIENT WAS HYPOTENSIVE AT HOME BUT GIVEN FLUIDS BY EMS, BLOOD PRESSURE NOW STABILIZED, A/O X 3 BUT CONFUSED (PER BASELINE), TOLERATING WELL ON ROOM AIR. WILL CONTINUE TO MONITOR.
--- NOTE | 2023-01-19 16:40 | NUR ---
BLOOD SAMPLES OBTAINED
[2023-01-19 17:53] LABS: BASOPHILS % (AUTO) 1.2 % (0.0-2.0); EOSINOPHILS % (AUTO) 3.5 % (0.0-6.0); HEMATOCRIT 27 % (33-45); HEMOGLOBIN 8.7 g/dL (11.5-14.8); LYMPHOCYTES % (AUTO) 50.5 % (20.0-44.0); MEAN CORPUSCULAR HGB CONC 32 g/dl (31.0-36.0); MEAN CORPUSCULAR VOLUME 89 fL (82-100); MONOCYTES # (AUTO) 0.5 K/uL (0.1-1.30); MONOCYTES % (AUTO) 13.8 % (2.0-12.0); NEUTROPHILS # (AUTO) 1.2 K/uL (1.8-8.9); PLATELET COUNT (AUTO) 204 K/uL (150-450); RED BLOOD CELL COUNT(AUTO) 3.07 MIL/uL (4.0-5.2)
[2023-01-19 18:05] LABS: CALCIUM, SERUM 9.3 mg/dL (8.5-10.1); CARBON DIOXIDE 30 mmol/L (21-32); CHLORIDE 103 mmol/L (98-107); CREATININE 0.6 mg/dL (0.6-1.3); GLUCOSE 106 mg/dL (74-106); POTASSIUM 4.4 mmol/L (3.5-5.1); SODIUM SERUM 138 mmol/L (136-145); UREA NITROGEN, BLOOD 14 mg/dL (7-18)
[2023-01-19 18:17] LABS: ALANINE AMINOTRANSFERASE 61 U/L (12-78); ALBUMIN 3.1 g/dL (3.4-5.0); ALKALINE PHOSPHATASE 95 U/L (46-116); ASPARTATE AMINOTRANSFERASE 37 U/L (15-37); BILIRUBIN,DIRECT 0.1 mg/dL (0.0-0.2); BILIRUBIN,TOTAL 0.4 mg/dL (0.2-1.0); TOTAL PROTEIN, SERUM 7.2 g/dL (6.4-8.2)
--- NOTE | 2023-01-19 21:19 | NUR ---
urine collected, sent to lab
[2023-01-19 21:36] LABS: BILIRUBIN,URINE NEGATIVE (NEGATIVE); COLOR,URINE YELLOW (YELLOW); LEUKOCYTE ESTERASE ,URINE 3+ (NEGATIVE); NITRITE, URINE NEGATIVE (NEGATIVE); PROTEIN,URINE 1+ mg/dl (NEGATIVE); UGLUCOSE NEGATIVE (NEGATIVE); UROBILINOGEN,URINE 0.2 EU/dL (0.2)
[2023-01-19 21:54] LABS: WBC,URINE 51-80 /HPF (0-3)
[2023-01-19 21:55] LABS: BACTERIA,URINE Many /HPF (None Seen)
[2023-01-19 21:56] LABS: SQUAMOUS EPITHELIAL CELL,UR Moderate /HPF (None Seen)
[2023-01-19] MEDS ORDERED: CEFTRIAXONE 1 G in IV D5W 50 ML IV ONE (22:00)
[2023-01-19] MEDS ORDERED: CEFTRIAXONE 1GM BAG (ER ONLY) 50 ML IV ONE (22:27)
[2023-01-19] MEDS ORDERED: CEPH500C2 PO (22:32)
--- NOTE | 2023-01-19 23:04 | NUR ---
Patient discharged to home in stable condition. Written and verbal after care instructions given. Patient verbalizes understanding of instruction. Pt ambulatory with a steady gait
[2023-01-19 23:06] VITALS: BP 161/63
== END 2023-01-19 23:06 | disposition home or self-care (01) ==
LOC: ER 16:39
DX: N39.0 Urinary tract infection, site not specified (principal); R55 Syncope and collapse; I10 Essential (primary) hypertension; Z79.899 Other long term (current) drug therapy
CPT/HCPCS: 99284; 96365; 70450; 71045; 93005; 85025; 80048; 87086; 80076; 83735; 81001; 36415; 84484 ×2; 83880; 82962; J0696 ×2; J7060